=== PATIENT | male | born 1940 | race Caucasian/White ===

== ENCOUNTER 2020-06-10 07:52 | Outpatient (REF) | payer MEDICARE, OTHER, SELFPAY ==
[2020-06-10 11:04] LABS: MANUAL DIFF FLAG NO
[2020-06-10 11:07] LABS: Basophils Absolute Auto 0.1 X10*3/uL (0.0-0.2); Basophils Percent Auto 0.9 % (0-2); Eosinophils Absolute Auto 0.1 X10*3/uL (0.0-0.4); Eosinophils Percent Auto 1.1 % (0-4); Hemoglobin 14.6 g/dl (14.0-18.0); Imm Gran Abs Auto 0.12 X10*3/uL (0.00-0.03); Imm Gran Pct Auto 1.3 % (0.0-0.4); Lymphocytes Absolute Auto 2.3 X10*3/uL (1.2-4.9); Lymphocytes Percent Auto 25.2 % (20-40); Mean Corpuscular HGB Conc 33.2 g/dl (31.0-36.0); Mean Corpuscular Hemoglobin 31.1 pg (27.0-33.0); Mean Corpuscular Volume 93.8 fL (80-98); Mean Platelet Volume 10.6 fL (9.4-12.4); Monocytes Absolute Auto 0.7 X10*3/uL (0.1-1.2); Monocytes Percent Auto 7.5 % (2-11); Neutrophils Absolute Auto 5.8 X10*3/uL (2.0-8.3); Platelet Count 228 X10*3/uL (160-400); Red Blood Count 4.69 X10*6/uL (4.60-5.80); Red Cell Distribution Width 14.3 % (11.0-16.0); White Blood Count 9.1 X10*3/uL (4.8-10.8)
[2020-06-10 11:21] LABS: Estimated Average Glucose 163 mg/dL; Hemoglobin A1c % 7.3 %
[2020-06-10 12:08] LABS: Alanine Aminotransferase 12 U/L (0-40); Albumin Level 4.4 g/dL (3.5-5.0); Alkaline Phosphatase 62 U/L (39-117); Anion Gap 15 (12-20); Aspartate Amino Transferase 18 U/L (5-37); Bilirubin Total 0.5 mg/dL (0.0-1.0); Blood Urea Nitrogen 22 mg/dL (9-16); Carbon Dioxide 25 mmol/L (22-29); Chloride 103 mmol/L (96-108); Cholesterol 264 mg/dL; Estimated Glomerular Filt Rate > 60; Glucose Fasting 132 mg/dL (60-99); HDL Cholesterol 29 mg/dL; LDL Cholesterol Calculated 182 mg/dl; Potassium 4.6 mmol/l (3.3-5.1); Sodium 138 mmol/L (135-145); Total Protein 7.3 g/dL (6.5-8.0); Triglycerides 269 mg/dL
== END 2020-06-10 07:53 | disposition home or self-care (01) ==
LOC: HO.MANLR 07:52
PROVIDERS: PCP Physician Assistant; Visit Provider Physician Assistant
DX: I10 Essential (primary) hypertension (principal); E11.9 Type 2 diabetes mellitus without complications; E78.00 Pure hypercholesterolemia, unspecified
CPT/HCPCS: 36415; 80053; 80061; 83036; 85025

== ENCOUNTER 2021-03-08 08:25 | Outpatient (REF) | payer MEDICARE, OTHER, SELFPAY ==
[2021-03-08 11:36] LABS: Estimated Average Glucose 192 mg/dL; Hemoglobin A1c % 8.3 %
== END 2021-03-08 08:26 | disposition home or self-care (01) ==
LOC: HO.MANLDS 08:25
PROVIDERS: PCP Internal Medicine; Visit Provider Physician Assistant
DX: I10 Essential (primary) hypertension (principal); E11.9 Type 2 diabetes mellitus without complications; E78.00 Pure hypercholesterolemia, unspecified
CPT/HCPCS: 36415; 83036

== ENCOUNTER 2021-06-28 07:58 | Outpatient (REF) | payer MEDICARE, OTHER, SELFPAY ==
[2021-06-28 11:25] LABS: Estimated Average Glucose 169 mg/dL; Hemoglobin A1c % 7.5 %
== END 2021-06-28 07:59 | disposition home or self-care (01) ==
LOC: HO.MANLDS 07:58
PROVIDERS: PCP Internal Medicine; Visit Provider Internal Medicine
DX: E11.9 Type 2 diabetes mellitus without complications (principal)
CPT/HCPCS: 36415; 83036

== ENCOUNTER 2021-10-24 08:35 | Outpatient (REF) | payer MEDICARE, OTHER, SELFPAY ==
[2021-10-24 11:46] LABS: Estimated Average Glucose 160 mg/dL; Hemoglobin A1c % 7.2 %
== END 2021-10-24 08:36 | disposition home or self-care (01) ==
LOC: HO.MANLDS 08:35
PROVIDERS: PCP Internal Medicine; Visit Provider Internal Medicine
DX: E11.9 Type 2 diabetes mellitus without complications (principal)
CPT/HCPCS: 36415; 83036

== ENCOUNTER 2022-02-21 07:32 | Outpatient (REF) | payer MEDICARE, OTHER, SELFPAY ==
[2022-02-21 11:14] LABS: Estimated Average Glucose 154 mg/dL
== END 2022-02-21 07:33 | disposition home or self-care (01) ==
LOC: HO.MANLDS 07:32
PROVIDERS: Visit Provider Internal Medicine
DX: E11.9 Type 2 diabetes mellitus without complications (principal)
CPT/HCPCS: 36415; 83036

== ENCOUNTER 2022-06-26 08:27 | Outpatient (REF) | payer MEDICARE, OTHER, SELFPAY ==
[2022-06-26 10:57] LABS: MANUAL DIFF FLAG NO
[2022-06-26 11:12] LABS: Basophils Absolute Auto 0.1 X10*3/uL (0.0-0.2); Eosinophils Absolute Auto 0.1 X10*3/uL (0.0-0.4); Hematocrit 39.1 % (42.0-52.0); Hemoglobin 13.3 g/dl (14.0-18.0); Imm Gran Abs Auto 0.08 X10*3/uL (0.00-0.03); Lymphocytes Absolute Auto 1.9 X10*3/uL (1.2-4.9); Lymphocytes Percent Auto 23.7 % (20-40); Mean Corpuscular Hemoglobin 31.9 pg (27.0-33.0); Mean Corpuscular Volume 93.8 fL (80.0-98.0); Mean Platelet Volume 10.4 fL (9.4-12.4); Monocytes Absolute Auto 0.6 X10*3/uL (0.1-1.2); Monocytes Percent Auto 7.1 % (2-11); Neutrophils Absolute Auto 5.4 x10*3/uL (2.0-8.3); Neutrophils Percent Auto 66.2 % (45-73); Platelet Count 209 X10*3/uL (160-400); Red Blood Count 4.17 X10*6/uL (4.60-5.80); Red Cell Distribution Width 14.6 % (11.0-16.0); White Blood Count 8.2 X10*3/uL (4.8-10.8)
[2022-06-26 11:45] LABS: Alanine Aminotransferase 13 U/L (0-40); Albumin Level 4.3 g/dL (3.5-5.0); Alkaline Phosphatase 60 U/L (39-117); Anion Gap 15 (12-20); Aspartate Amino Transferase 20 U/L (5-37); Bilirubin Total 0.6 mg/dL (0.0-1.0); Blood Urea Nitrogen 21 mg/dL (9-16); Calcium 9.1 mg/dL (8.4-10.2); Carbon Dioxide 23 mmol/L (22-29); Chloride 103 mmol/L (96-108); Cholesterol 250 mg/dL; Estimated Glomerular Filt Rate > 60; Glucose Random 132 mg/dL (60-115); HDL Cholesterol 29 mg/dL; LDL Cholesterol Calculated 178 mg/dl; Potassium 4.5 mmol/L (3.3-5.1); Sodium 136 mmol/L (135-145); Triglycerides 215 mg/dL
[2022-06-26 11:46] LABS: Estimated Average Glucose 148 mg/dL; Hemoglobin A1c % 6.8 %
== END 2022-06-26 08:28 | disposition home or self-care (01) ==
LOC: HO.MANLDS 08:27
PROVIDERS: Visit Provider Internal Medicine
DX: E11.9 Type 2 diabetes mellitus without complications (principal)
CPT/HCPCS: 36415; 80053; 80061; 83036; 85025

== ENCOUNTER 2022-10-09 08:17 | Outpatient (REF) | payer MEDICARE, OTHER, SELFPAY ==
[2022-10-09 12:00] LABS: Estimated Average Glucose 177 mg/dL; Hemoglobin A1c % 7.8 %
== END 2022-10-09 08:18 | disposition home or self-care (01) ==
LOC: HO.MANLDS 08:17
PROVIDERS: Visit Provider Internal Medicine
DX: E11.9 Type 2 diabetes mellitus without complications (principal)
CPT/HCPCS: 36415; 83036

== ENCOUNTER 2023-02-18 07:53 | Outpatient (REF) | payer MEDICARE, OTHER, SELFPAY | END 2023-02-18 07:54 | disposition home or self-care (01) | LOC: HO.MANLDS 07:53 | PROVIDERS: Visit Provider Internal Medicine | DX: E11.9 Type 2 diabetes mellitus without complications (principal) | CPT/HCPCS: 36415; 83036 ==

== ENCOUNTER 2023-06-17 07:55 | Outpatient (REF) | payer MEDICARE, OTHER, SELFPAY ==
[2023-06-17 13:30] LABS: Estimated Average Glucose 143 mg/dL; Hemoglobin A1C 155.7251 umol/L; Hemoglobin A1c % 6.6 % (<6.0)
[2023-06-17 13:46] LABS: Alanine Aminotransferase 11 U/L (0-40); Albumin Level 4.1 g/dL (3.5-5.0); Alkaline Phosphatase 63 U/L (39-117); Anion Gap 15 (12-20); Aspartate Amino Transferase 22 U/L (5-37); Bilirubin Total 0.7 mg/dL (0.0-1.0); Blood Urea Nitrogen 15 mg/dL (9-16); Calcium 9.1 mg/dL (8.4-10.2); Carbon Dioxide 23 mmol/L (22-29); Chloride 104 mmol/L (96-108); Cholesterol 200 mg/dL (<200); Estimated Glomerular Filt Rate > 60; Glucose Random 132 mg/dL (60-115); HDL Cholesterol 27 mg/dL (>40); LDL Cholesterol Calculated 136 mg/dL (<100); Potassium 4.5 mmol/L (3.3-5.1); Sodium 137 mmol/L (135-145); Triglycerides 187 mg/dL (<150)
[2023-06-17 14:11] LABS: Creatinine Urine 67.11 mg/dL; Microalbum/Creatinine Ratio Ur 23.8 ug/mg cr (<30)
== END 2023-06-17 07:56 | disposition home or self-care (01) ==
LOC: HO.MANLDS 07:55
PROVIDERS: Visit Provider Internal Medicine
DX: E11.9 Type 2 diabetes mellitus without complications (principal)
CPT/HCPCS: 36415; 80053; 80061; 82043; 82570; 83036

== ENCOUNTER 2023-10-21 08:15 | Outpatient (REF) | payer MEDICARE, OTHER, SELFPAY ==
[2023-10-21 14:07] LABS: Estimated Average Glucose 148 mg/dL; Hemoglobin A1c % 6.8 % (<6.0)
== END 2023-10-21 08:16 | disposition home or self-care (01) ==
LOC: HO.MANLDS 08:15
PROVIDERS: Visit Provider Internal Medicine
DX: E11.9 Type 2 diabetes mellitus without complications (principal)
CPT/HCPCS: 36415; 83036

== ENCOUNTER 2024-02-24 08:00 | Outpatient (REF) | payer MEDICARE, OTHER, SELFPAY ==
[2024-02-24 14:18] LABS: Estimated Average Glucose 154 mg/dL
== END 2024-02-24 08:01 | disposition home or self-care (01) ==
LOC: HO.MANLDS 08:00
PROVIDERS: Visit Provider Internal Medicine
DX: E11.9 Type 2 diabetes mellitus without complications (principal)
CPT/HCPCS: 36415; 83036

== ENCOUNTER 2024-12-29 08:12 | Outpatient (REF) | payer MEDICARE, OTHER, SELFPAY ==
--- OUTSIDE RECORDS SUMMARY | 2024-12-29 08:17 | XMS_ITS | Encounter Summary ---
Author Name [facility] [facility] [place] [facility] [place] [facility] [place] Address [address] [place] [address] Care Team Providers Care Physical Therapy Technician Name Role Phone SHERICE SANTANA [facility] Insurance Providers: All historical and current Section Date Range: From patient's date of to the date document was created. This section includes the names of all active insurance providers for the patient. Insurance Provider Type of Coverage Plan Name Start of Policy Coverage End of Policy Coverage Group Number Member ID Insurance Provider's Telephone Number Policy Zheng's Name Patient's Relationship to Policy Zheng FARHATROBERT ELINA KONG [id number] Feb 16, 2017 [id number] ERIN STALEY PATIENT [facility] [employer] [place] [facility] [place] [facility] Jul 23, 2018 [id number] MEREERIN AHJI HN PATIENT [facility] Aug 19, 2015 [id number] ERIN STALEY HN PATIENT MEDICARE (WNR) MEDICARE (M) PART A Sep 19, 2007 PART A [id number] ERIN STALEY HN PATIENT MEDICARE (WNR) MEDICARE (M) PART B Sep 19, 2007 PART B [id number] MEREERIN HAJI HN PATIENT MEDICARE (WNR) MEDICARE (M) PART B Sep 19, 2007 PART B [id number] ERIN STALEY PATIENT MEDICARE (WNR) MEDICARE (M) PART A Sep 19, 2007 PART A [id number] ERIN STALEY PATIENT MEDICARE PART D (WNR) PRESCRIPT ION PART D Feb 16, 2017 PART D [id number] ERIN STALEY PATIENT MEDICARE PART D (WNR) PRESCRIPT ION PART D Feb 16, 2017 PART D [id number] [phone] ERIN STALEY PATIENT Selected Encounter This section includes the information on record at [place] for the Encounter. Date/Time Encounter Type Encounter Description Reason Provider Source Jul 22, 2024 10:00 AM OFFICE O/P EST HI 40 MIN PRIMARY CARE/MEDICINE ICD-10-CM I49.5 Sick sinus syndrome OZZY SANTANA AM [employer] Encounter Template Text not used by [place] Assessments - Encounter Diagnoses This section includes the primary and secondary diagnoses documented for the Encounter. Date/Time Primary/Secondary Diagnosis Diagnosis Name Provider Source Jul 22, 2024 10:31 AM PRIMARY Sick sinus syndrome SANTANA,WILL NOAH J [facility] Jul 22, 2024 10:31 AM SECONDARY Essential (primary) hypertension [facility] Jul 22, 2024 10:31 AM SECONDARY Hyperlipidemia, unspecified [facility] Jul 22, 2024 10:31 AM SECONDARY Sleep apnea, unspecified [facility] Jul 22, 2024 10:31 AM SECONDARY Type 2 diabetes mellitus without complications [facility] Lab Results: +/- 30 days of the encounter This section includes the Chemistry and Hematology Lab Results on record with [place] for the patient. Radiology Reports and Pathology Reports are provided separately, in subsequent sections. Lab Results This section contains the Chemistry/Hematology Results that were resulted 30 days before or 30 daysafter the date of the Encounter. Date/Time Source Result Type Result - Unit Interpretation Reference Range Specimen Type Comment Jul 14, 2024 07:47 AM [facility] BASIC METABOLIC PANEL (non-fasting) SERUM Spe cimen Type: SERUM No comment entered. Ordering Provider: VANE SANTANA Report Released Date/Time: Jul 08, 2024 03:20 PM Reporting Lab: [facility] [address] [facility] [facility] [address] Performing Lab: [address] [address] UREA NITROGEN 19 mg/dL 7-25 GLUCOSE 132 mg/dL H 65-100 SODIUM 136 mmol/L 135-145 POTASSIUM 4.7 mmol/L 3.5-5.0 CHLORIDE 105 mmol/L 100-110 CO2 23 meq/L 20-30 CREATININE, Serum 1.03 mg/dL 0.50-1.40 eGFR(CKD-EPI 2020) 73 mL/min >60 Jul 14, 2024 07:47 AM [facility] CBC BLOOD Specimen Type: BLOOD No comment entered. Ordering Provider: SHERICE SANTANA Report Released Date/Time: Jul 08, 2024 03:20 PM Reporting Lab: [address] [address] Performing Lab: [address] [address] WBC 8.79 10*3/uL 4.50-11.00 RBC 4.61 10*6/uL 4.23-5.66 HGB 14.6 g/dL 12.8-17 HCT 42.3 39.2-50.4 MCV 91.8 fL 82-99 MCHC 34.5 g/dL 30.8-35.1 PLT 206 10*3/uL 140-360 RDW-CV 14.8 12.0-16.0 MCH 31.7 pg 26.2-32.6 Jul 14, 2024 07:47 AM [facility] LIPID PANEL, NON FASTING SERUM Specimen Type: SERUM No comment entered. Ordering Provider: SHERICE SANTANA Report Released Date/Time: Jul 08, 2024 03:20 PM Reporting Lab: [address] [address] Performing Lab: [facility] [address] [facility] [address] CHOLESTEROL 230 mg/dL H TRIGLYCERIDE 135 mg/dL 0-150 LDL calculated 175 mg/dL H 0-129 CHOL/HDL 8.2 HDL CHOLESTEROL 28 mg/dL L 40-60 Jul 14, 2024 07:47 AM [facility] HEMOGLOBIN A1C PANEL BLOOD Specimen Type: BLO OD Comment: Values obtained from A1C measurements can vary. For atypical A1C assays, a reported value of 7.0 could actually be between 6.72 and 7.28 if measured by a reference method. A reported value of 9.0 could actually be between 8.73 and 9.27. Ref: http://www.ngsp.org/CAPdata.asp Ordering Provider: SHERICE SANTANA Report Released Date/Time: Jul 08, 2024 03:20 PM Reporting Lab: [address] [address] Performing Lab: [address] [address] HEMOGLOBIN A1C 6.8 H 4.0-5.6 Jul 14, 2024 07:47 AM [facility] LIVER FUNCTION SERUM Specimen Type: SERUM No comment entered. Ordering Provider: SHERICE SANTANA Report Released Date/Time: Jul 08, 2024 03:20 PM Reporting Lab: [address] [address] Performing Lab: [address] [address] PROTEIN,TOTAL 7.1 g/dL 6.0-8.3 ALBUMIN 4.1 g/dL 3.5-5.0 ALKALINE PHOSPHATASE 69 U/L 40-150 AST 20 U/L 5-34 ALT 14 U/L BILIRUBIN, TOTAL 0.9 mg/dL 0.2-1.2 Jul 14, 2024 07:47 AM [facility] PT & INR (PROTIME) PLASMA Specimen Type: PLASM A No comment entered. Ordering Provider: SANTANA,SHERICE J Report Released Date/Time: Jul 08, 2024 03:20 PM Reporting Lab: [facility] [address] [facility] [address] Performing Lab: [address] [address] INR 2.0 PROTIME 21.2 s H 10.0-13.1 Jul 14, 2024 06:45 AM [facility] MICROALBUMIN CREATININE RATIO PANEL URINE Spe cimen Type: URINE No comment entered. Ordering Provider: SHERICE SANTANA Report Released Date/Time: Jul 08, 2024 03:20 PM Reporting Lab: [facility] [address] [address] Performing Lab: [facility] [address] [address] MICROALBUMIN/CREATININE RATIO 17.6 mg/g 0-29.9 MICROALBUMIN,QUANTITATIVE 0.5 mg/dL RR U NAVAIL CREATININE URINE 28.48 mg/dL Vital Signs: All taken on the encounter date This section contains inpatient and outpatient Vital Signs collected on the date of the Encounter. Date/Time Temperature Pulse Blood Pressure Respiratory Rate SP02 Pain Height Weight Body Mass Index Source Jul 22, 2024 10:28 AM 138[facility] [place] [facility] Jul 22, 2024 09:57 AM 98.3 88 157/81 20 100 0 71 263 37 [facility] Social History: Smoking Status (Most current) and Tobacco Use (All prior to encounter date) This section includes the most current, and the historical, smoking and tobacco- related health factors from the [place] facility where the Encounter took place. Current Smoking Status This section includes the most current smoking, or tobacco-related health factor, from the [place] facility where the Encounter took place. Date/Time Current Smoking Status Comment Mariola choudhary Jul 22, 2023 09:30 AM VA-TOBACCO NEVER USED [facility] Tobacco Use History This section includes a history of the smoking, or tobacco-related health factors, that were collected on or before the date of the Encounter. The data comes from the [place] facility where the Encounter took place. Date/Time Smoking Status/Tobacco Use Comment F acility Jul 19, 2022 09:00 AM VA-TOBACCO NEVER USED [facility] [place] [facility] Jul 21, 2021 09:00 AM VA-TOBACCO NEVER USED [facility] [place] [facility] Jul 12, 2020 10:12 AM VA-TOBACCO NEVER USED [facility] [place] [facility] Jul 19, 2019 12:47 PM VA-TOBACCO NEVER USED [facility] [place] [facility] Feb 14, 2018 10:48 AM VA-TOBACCO NEVER USED [facility] [place] [facility] Jul 24, 2017 08:25 AM LIFETIME NON-TOBACCO USER [facility] [place] [facility] Jul 25, 2016 11:19 AM LIFETIME NON-TOBACCO USER [facility] [place] [facility] Encounter Notes: All associated encounter notes This section contains the clinical notes associated to the Encounter. Date/Time Encounter Note(s) Provider Source Jul 22, 2024 10:20 AM PRIMARY CARE NURSE PRACTITIONER OUTPATIENT NOTE: LOCAL TITLE: NURSE PRACTITIONER OUTPATIENT NOTE STANDARD TITLE: PRIMARY CARE NURSE PRACTITIONER OUTPATIENT NOTE DATE OF NOTE: JUL 22, 2024@10:20 ENTRY DATE: JUL 22, 2024@10:20:41 AUTHOR: SHERICE SANTANA COSIGNER: URGENCY: STATUS: COMPLETED Chief complaint: Patient is a 83 year old [place]. HPI: Pleasant male [place] here to follow up. He comes annaully, follows with Dr. Juarez. Allergies: SIMVASTATIN, KEFLEX, CLARITIN The following VA and Non-VA meds were reconciled with patient. The patient was educated on the use of the medications including indication and side effects. Active and Recently Outpatient Medications (excluding Supplies): Active Non-VA Medications Status 1) Non-VA ASPIRIN 81MG CHEW TAB 81MG BY MOUTH DAILY ACTIVE 2) Non-VA DORZOLAMIDE HCL 2% OPH SOLN 1 DROP TWICE ACTIVE DAILY 3) Non-VA FISH OIL 1000MG (500MG DHA/EPA) CAP 1000MG BY ACTIVE MOUTH DAILY 4) Non-VA LATANOPROST 0.005% OPH SOLN 1 DROP INTO EACH ACTIVE EYE DAILY 5) Non-VA LISINOPRIL 20MG TAB 20MG BY MOUTH ONCE DAILY ACTIVE 6) Non-VA WARFARIN (NON-VA) TAB 4 MG BY MOUTH DAILY ACTIVE Review of Systems: Constitutional: (-)for Fevers, chills, weakness, nights sweats On examination: 98.3 F [36.8 C] (07/22/2024 09:57)157/81 (07/22/2024 09:57)88 (07/22/2024 09:57)20 (07/22/2024 09:57)0 (07/22/2024 09:57)BMI: 36.8263 lb [119.29 kg] (07/22/2024 09:57) is alert and oriented X3 Neck: supple without masses, trachea midline, ln not palpable, no thyromegaly Cardiovasc: 2plus carotids without bruits, no JVD Heart Reguler rate and rhythm NL S1S2 no S3 or murmur Respiration: Normal respiratory effort, lungs clear ABD: Benign normal active bowel sounds no HSM no rebound or referred pain EXT: no clubbing, edema, or cyanosis All diagnostics from past month were reviewed with patient. Assessment/plan: Active problems - Computerized Problem List is the source for the followin. Sick sinus syndrome - maintains non va cardiology, pacemaker in place. He is followed in the community, Dr. Ordoñez. 2. Diabetic neuropathy - we discussed importance of foot care, daily inspections, avoiding bear feet... 3. Hyperlipidemia - some improvement, did not tolerate statins, discussed food strategies 4. Diabetes mellitus type 2 without retinopathy - controlled with diet 5. History of mechanical heart valve replacement - [place] model [id number] 02/08/2004, MRI compatible. 7. Sleep apnea - doing well with cpap 8. Benign essential hypertension - repeat 138/76, continue lisinopril. 9. Glaucoma - follows with Dr. Harrell, reviewed and discussed eye medication. Health Care Maintenance: flu+ CVS 05/29/2024 Review of medial record = 5mins Time spent with Patient including shared decision making = 30 mins Post visit documentation = 5mins Total time = 40 mins Follow up visit in 12 mos. Influenza Immunization: The patient has received the seasonal influenza vaccine for the current season at another location. Documented: INFLUENZA, UNSPECIFIED FORMULATION Historical Date Administered: May 29, 2024 Outside Location: Outside Healthcare Provider Information Source: SOURCE UNSPECIFIED HTN Assess for Elevated BP>=140/90: Repeat blood pressure: 138/76 The patient's blood pressure is usually adequately controlled. No medication changes are indicated at this time. PAVE Foot Check: A complete foot check was completed at this encounter. VISUAL INSPECTION: Includes inspection for skin breaks, deformity, erythema, trauma, pallor on elevation, dependent rubor, nail deformities, extensive callus and pitting edema. Visual exam results: Normal PEDAL PULSES: Includes palpation of dorsalis and posterior tibial pulses and signs/symptoms of vascular compromise like pain, pallor, parasthesia or paralysis. Present (even if diminished) SENSORY CHECK: Includes 10 gram Monofilament ([place]-Thuy) test of sensation. Intact (Greater than or equal to 80% of sites checked) Abnormal (Less than 80% of sites checked): Intact LOW-RISK: LOW RISK INFORMATION PROVIDED: 1. Advised patient not to walk barefoot. 2. Explained the importance of daily foot checks for changes. 3. Stressed the importance of daily foot hygiene, including bathing and complete drying. Sexual Orientation: The patient thinks of their sexual orientation as: Straight or Heterosexual Medication Reconciliation: Outpatient: Has the patient been taking medications as documented in the EMLR? YES: The patient has been taking medications as documented in the EMLR. Essential Medication List for Review used to complete this medication reconciliation. INCLUDED IN THIS LIST: Alphabetical list of active outpatient prescriptions dispensed from this [facility] (local) and dispensed from another [place] or [facility] facility (remote) as well as inpatient orders (local, pending and active), local clinic medications, locally documented non-VA medications, and local prescriptions that have or been discontinued in the past 90 days. - All changes in medications, including all non-VA/Herbal/OTC medications were entered into CPRS. - If there were any medications the patient should no longer take, they were discontinued. - The patient/caregiver was instructed to update this list, discard old lists, and take this list to the next appointment, whether with a VA or non-VA provider. /lj/ Sherice Santana DNP, OIL WELL DRILLER-BC, CNL Primary Care Nurse Practitioner Signed: 07/22/2024 10:30 SHERICE SANTANA [place] [facility] [place] [facility] Jul 22, 2024 10:13 AM PRIMARY CARE NURSE PRACTITIONER OUTPATIENT NOTE: LOCAL TITLE: NURSE PRACTITIONER OUTPATIENT NOTE STANDARD TITLE: PRIMARY CARE NURSE PRACTITIONER OUTPATIENT NOTE DATE OF NOTE: JUL 22, 2024@10:13 ENTRY DATE: JUL 22, 2024@10:13:27 AUTHOR: SHERICE SANTANA EXP COSIGNER: URGENCY: STATUS: COMPLETED LAB CHEMISTRY & HEMATOLOGY Collection DT Specimen Test Name Result Units Ref Range 07/14/2024 07:47 PLASMA PROTIME 21.2 H sec 10.0 - 13.1 INR 2.0 07/14/2024 07:47 SERUM CREATININE, Serum 1.03 mg/dL 0.50 - 1.40 eGFR(CKD-EPI 2020 73 mL/min Ref: >=60 SODIUM 136 mmol/L 135 - 145 POTASSIUM 4.7 mmol/L 3.5 - 5.0 CHLORIDE 105 mmol/L 100 - 110 CO2 23 mEq/L 20 - 30 UREA NITROGEN 19 mg/dL 7 - 25 GLUCOSE 132 H mg/dL 65 - 100 PROTEIN,TOTAL 7.1 g/dL 6.0 - 8.3 ALBUMIN 4.1 g/dL 3.5 - 5.0 ALK DANIELLA 69 U/L 40 - 150 AST 20 U/L 5 - 34 BILIRUBIN, TOTAL 0.9 mg/dL 0.2 - 1.2 CHOLESTEROL 230 H mg/dL <7 - 199 TRIGLYCERIDE 135 mg/dL 0 - 150 LDL calculated 175 H mg/dL 0 - 129 CHOL/HDL 8.2 ALT 14 U/L <6 - 55 HDL CHOLESTEROL 28 L mg/dL 40 - 60 07/14/2024 07:47 BLOOD !! HEMOGLOBIN A1C 6.8 H % 4.0 - 5.6 07/14/2024 07:47 BLOOD WBC 8.79 K/cmm 4.50 - 11.00 RBC 4.61 M/cmm 4.23 - 5.66 HGB 14.6 g/dL 12.8 - 17 HCT 42.3 % 39.2 - 50.4 MCV 91.8 fl 82 - 99 MCH 31.7 pg 26.2 - 32.6 MCHC 34.5 g/dL 30.8 - 35.1 RDW-CV 14.8 % 12.0 - 16.0 PLT 206 K/cmm 140 - 360 07/14/2024 06:45 URINE mALB/Cr 17.6 mg/G 0 - 29.9 MicroAl 0.5 mg/dL Ref: RR UNAVAIL CREATININE URINE 28.48 mg/dL /lj/ Sherice Santana DNP, OIL WELL DRILLER-BC, CNL Primary Care Nurse Practitioner Signed: 07/22/2024 10:20 SHERICE SANTANA [facility] [place] [facility] Jul 22, 2024 10:02 AM PREVENTIVE MEDICINE NURSING NOTE: LOCAL TITLE: CLINICAL REMINDERS/NURSING STANDARD TITLE: PREVENTIVE MEDICINE NURSING NOTE DATE OF NOTE: JUL 22, 2024@10:02 ENTRY DATE: JUL 22, 2024@10:02:54 AUTHOR: DALE HINSON COSIGNER: URGENCY: STATUS: COMPLETED Advance Directive Screen MH AD: Patient does not have an Advance Directive completed and is requesting more information. A consult was sent to Social Work Services at this visit so that an appointment can be made with the patient to review the advance directive. The patient received education about Advance Directives and written notification of his/her rights. Suicide Screen: C-SSRS Screening [place]-Suicide Severity Rating Scale (C-SSRS Screener) 1. Over the past month, have you wished you were or wished you could go to sleep and not wake up? No 2. Over the past month, have you had any actual thoughts of killing yourself? No 3. Over the past month, have you been thinking about how you might do this? Response not required due to responses to other questions. 4. Over the past month, have you had these thoughts and had some intention of acting on them? Response not required due to responses to other questions. 5. Over the past month, have you started to work out or worked out the details of how to kill yourself? Response not required due to responses to other questions. 6. If yes, at any time in the past month did you intend to carry out this plan? Response not required due to responses to other questions. 7. In your lifetime, have you ever done anything, started to do anything, or prepared to do anything to end your life (for example, collected pills, obtained a gun, gave away valuables, went to the roof but didn't jump)? No 8. If YES, was this within the past 3 months? Response not required due to responses to other questions. Depression Screening: Perform PHQ-2 A PHQ-2 screen was performed. The score was 0 which is a negative screen for depression. Over the past two weeks, how often have you been bothered by the following problems? 1. Little interest or pleasure in doing things Not at all 2. Feeling down, depressed, or hopeless Not at all Homelessness/Food Insecurity Screen: In the past 2 months, have you been living in stable housing that you own, rent, or stay in as part of a household? Yes - Living in stable housing. Are you worried or concerned that in the next 2 months you may NOT have stable housing that you own, rent, or stay in as part of a household? No - Not worried about housing near future The [place] reports the following: Within the past 12 months, you worried whether your food would run out before you got money to buy more. Never true Within the past 12 months, the food you bought just didn't last and you didn't have money to get more. Never true Depression Screening: Perform PHQ-2 A PHQ-2 screen was performed. The score was 0 which is a negative screen for depression. Over the past two weeks, how often have you been bothered by the following problems? 1. Little interest or pleasure in doing things Not at all 2. Feeling down, depressed, or hopeless Not at all Falls & Incontinence Screen: Falls Screen: 4. No falls within the past year. Incontinence Screen No incontinence. Alcohol Use Screen (AUDIT-C): Alcohol Screen: SCREEN FOR ALCOHOL (AUDIT-C) An alcohol screening test (AUDIT-C) was negative (score=0). 1. How often did you have a drink containing alcohol in the past year? Consider a drink to be a 12 ounce can or bottle of regular beer, 8 ounces of malt liquor, a 5 ounce glass of table wine, or a 1.5 ounce shot of liquor (like scotch, gin, or vodka). Never 2. How many drinks containing alcohol did you have on a typical day when you were drinking in the past year? Response not required due to responses to other questions. 3. How often did you have six or more drinks on one occasion in the past year? Response not required due to responses to other questions. RHS Screen: RHS Screen Session Format: Face to Face Environmental Check Upon inquiry, the individual reports that the environment is safe to proceed. Informed Consent to Screen and Document The individual consents to proceed with screening. The individual consents to documentation of responses. PRIMARY SCREEN: In the past 12 months, how often did a current or former intimate partner (e.g., boyfriend, girlfriend, , , sexual partner): 1. Scream or curse at you Never 2. Insult or talk down to you Never 3. Threaten you with harm Never 4. Physically hurt you Never 5. Force or pressure you to have sexual contact against your will, or when you were unable to say no Never ?? The HITS tool (items 1-4 above) is [place] copyright protected by Sunny Terrell MD, and the user has full rights to use it throughout the [place] system. PRIMARY SCREEN RESULT: The Primary Screen is NEGATIVE. The individual answered never to all forms of IPV above (i.e., answered never to all 5 items) The individual accepts education and/or resources: No EDUCATION: Other: not interested at this time /lj/ Dale Hinson Health Mining Analyst FRANCHISE FIELD CONSULTANT,PRIMARY CARE Signed: 07/22/2024 10:05 DALE HINSON [place] [facility]
--- OUTSIDE RECORDS SUMMARY | 2024-12-29 08:17 | XMS_ITS | Continuity of Care Document ---
Author Name [facility] Organization [facility] Care Team Providers Care Therapeutic Recreation Director Name Role Phone [facility] Unavailable Unavailable Problems Combined list of problems from Department of Defense and Veterans Affairs facilities. It does not include entries that were removed or entered in error. 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 [facility] [place] [facility] Hyperlipidemia (SCT [id number]) Active Condition [facility] [place] [facility] Sick sinus syndrome Active Condition Jul 22, 2024 Entered By: VANE LI Comment: 2020 pacemaker [facility] [place] [place] [facility] Sleep apnea Active Condition Jul 25, 2016 Entered By: ADAN GUNN Comment: [facility]ap [facility] [place] [facility] Tinnitus Active [facility] [place] [facility] Diagnosis: ICD-10-CM I49.5 Sick sinus syndrome Active Diagnosis [facility] [place] [facility] Medications Combined list of outpatient medications from Department of Defense and Veterans Affairs facilities.Medications provided include 1) outpatient medications from the last 15 months, and 2) patient-reported medications. Medication Details Route Status Patient Instructions Prescription Expires Prescription Number Last Dispense Date Ordering Provider Order Date Order Qty Source ASPIRIN 81MG TAB,CHEWABL E CHEW ONE TABLET BY MOUTH DAILY ORAL ACTIVE JESUS GUNN TH Ron 2016 [facility] DORZOLAMIDE HCL 2% SOLN,OPH INSTILL 1 DROP left eye TWICE DAILY ACTIVE ,[facility] FISH OIL 1000MG (500MG DHA/EPA) CAP,ORAL TAKE 1 CAPSULE BY MOUTH DAILY ORAL ACTIVE [facility] LATANOPROST 0.005% SOLN,OPH INSTILL 1 DROP INTO EACH EYE DAILY OPHTHA LMIC ACTIVE , [facility] LISINOPRIL 20MG TAB TAKE ONE TABLET BY MOUTH ONCE DAILY ORAL ACTIVE [facility] LI [facility] WARFARIN (NON-VA) TAB TAKE 4 MG BY MOUTH DAILY ORAL ACTIVE [facility] Allergies, Adverse Reactions, Alerts Combined list of allergies from Department of Defense and Veterans Affairs facilities. It does not include entries that were removed or entered in error. Substance Category Reaction Severity Reaction type Status Date Reported Comments Source CLARITIN Propensity to adverse reactions to drug (finding) active [facility] KEFLEX Propensity to adverse reactions to drug (finding) active 6 [facility] SIMVASTATIN Propensity to adverse reactions to drug (finding) active 6 [facility] Immunizations Combined list of available immunizations from the Department of Defense and Veterans Affairs facilities. Immunization Series Date Given Administered By Site Reaction Lot Number CVX Code Drug Rubber Attacher Status Comments Source INFLUENZA, UNSPECIFIED FORMULATION 2023 88 complet ed HISTORICA L INFORMATI ON - SOURCE UNSPECIFI ED, [facility] INFLUENZA, UNSPECIFIED FORMULATION 2022 88 complet ed HISTORICA L INFORMATI ON - SOURCE UNSPECIFI ED, [facility] INFLUENZA, UNSPECIFIED FORMULATION 2021 88 complet ed [facility] COVID-19 (MODERNA), MRNA, LNP-S, PF, 100 MCG OR 50 MCG DOSE 3 2020 207 complet ed MOD; [id number]; 2 [facility] INFLUENZA, UNSPECIFIED FORMULATION 2020 88 complet ed [facility] COVID-19 (MODERNA), MRNA, LNP-S, PF, 100 MCG/0.5 ML DOSE 2 2020 207 complet ed MOD; [id number]; 1 [facility] COVID-19 (MODERNA), MRNA, LNP-S, PF, 100 MCG/0.5 ML DOSE 1 2020 207 complet ed MOD; [id number]; 1 [facility] [place] INFLUENZA, UNSPECIFIED FORMULATION 2019 88 complet ed [facility] [place] INFLUENZA, INJECTABLE, QUADRIVALENT, PRESERVATIVE FREE 2018 150 complet ed Site: Left Deltoid [facility] PNEUMOCOCCAL POLYSACCHARID E PPV23 2018 33 complet ed [facility] INFLUENZA, TRIVALENT, ADJUVANTED 2017 168 complet ed Site: Right Deltoid [facility] [place] PNEUMOCOCCAL CONJUGATE PCV 13 2017 133 complet ed [facility] INFLUENZA, SEASONAL, INJECTABLE 2016 141 complet ed Site: Left Deltoid [facility] TDAP 2016 115 complet ed Site: Right Deltoid [facility] FLU,3 YRS (HISTORICAL) [address] Juarez office [facility] FLU,3 YRS (HISTORICAL) 2015 88 complet ed [facility] [place] FLU,3 YRS (HISTORICAL) [address] [facility]arez [facility] FLU,3 YRS (HISTORICAL) [address] [place] [facility] [place] [facility] FLU,3 YRS (HISTORICAL) [address] [place] [facility] [place] [facility] FLU,3 YRS (HISTORICAL) [address] [place] [facility] [place] [facility] Results Combined list of recent chemistry, hematology and other laboratory results from Department of Defense and Veterans Affairs, ranging from 15 months to all on record, depending upon the facility. Order Name Results Value Reference Range Date Interpretation Specimen Comments Source CBC LEUKOCYTES [#/VOLUME] IN BLOOD BY AUTOMATED COUNT 8.79 10*3/u L 4.50 - 11.00 07/14 Specimen Type: BLOOD No comment entered. Ordering Provider: POLINA LI Report Released Date/Time: Jul 08, 2024 03:20 PM Reporting Lab: [facility] [place] [place] [address] [address] Performing Lab: [place] [facility] [place] [facility] [address] [facility] [address] [facility] [place] [facility] CBC ERYTHROCYTE S [#/VOLUME] IN BLOOD BY AUTOMATED COUNT 4.61 10*6/u L 4.23 - 5.66 07/14 Specimen Type: BLOOD No comment entered. Ordering Provider: POLINA LI Report Released Date/Time: Jul 08, 2024 03:20 PM Reporting Lab: [facility] [place] [place] [address] [address] Performing Lab: [place] [facility] [place] [facility] [address] [facility] [address] [place] [facility] [place] [facility] CBC HEMOGLOBIN [MASS/VOLUM E] IN BLOOD 14.6 g/dL 12.8 - 17 07/14 Specimen Type: BLOOD No comment entered. Ordering Provider: POLINA LI Report Released Date/Time: Jul 08, 2024 03:20 PM Reporting Lab: [facility] [place] [address] [address] Performing Lab: [facility] [place] [facility] [address] [facility] [address] [facility] [facility] CBC HEMATOCRIT [VOLUME FRACTION] OF BLOOD BY AUTOMATED COUNT 42.3 39.2 - 50.4 07/14 Specimen Type: BLOOD No comment entered. Ordering Provider: POLINA LI Report Released Date/Time: Jul 08, 2024 03:20 PM Reporting Lab: [facility] [place] [place] [facility] [address] [facility] [address] Performing Lab: [facility] [place] [facility] [address] [facility] [address] [place] [facility] [place] [facility] CBC MCV [ENTITIC VOLUME] BY AUTOMATED COUNT 91.8 fL 82 - 99 07/14 Specimen Type: BLOOD No comment entered. Ordering Provider: POLINA LI Report Released Date/Time: Jul 08, 2024 03:20 PM Reporting Lab: [facility] [place] [address] [address] Performing Lab: [facility] [place] [place] [address] [address] [facility] [place] [facility] CBC MCHC [MASS/VOLUM E] BY AUTOMATED COUNT 34.5 g/dL 30.8 - 35.1 07/14 Specimen Type: BLOOD No comment entered. Ordering Provider: POLINA LI Report Released Date/Time: Jul 08, 2024 03:20 PM Reporting Lab: [facility] [place] [address] [address] Performing Lab: [facility] [place] [place] [address] [address] [facility] [place] [facility] CBC PLATELETS [#/VOLUME] IN BLOOD BY AUTOMATED COUNT 206 10*3/u L 140 - 360 07/14 Specimen Type: BLOOD No comment entered. Ordering Provider: POLINA LI Report Released Date/Time: Jul 08, 2024 03:20 PM Reporting Lab: [facility] [place] [address] [address] Performing Lab: [facility] [place] [facility] [address] [facility] [address] [facility] [place] [facility] CBC ERYTHROCYTE DISTRIBUTIO N WIDTH [RATIO] BY AUTOMATED COUNT 14.8 12.0 - 16.0 07/14 Specimen Type: BLOOD No comment entered. Ordering Provider: POLINA LI Report Released Date/Time: Jul 08, 2024 03:20 PM Reporting Lab: [facility] [place] [facility] [address] [facility] [address] Performing Lab: [place] [facility] [place] [facility] [address] [facility] [address] [facility] [place] [facility] CBC MCH [ENTITIC MASS] BY AUTOMATED COUNT 31.7 pg 26.2 - 32.6 07/14 Specimen Type: BLOOD No comment entered. Ordering Provider: POLINA LI Report Released Date/Time: Jul 08, 2024 03:20 PM Reporting Lab: [facility] [place] [facility] [address] [facility] [address] Performing Lab: [facility] [place] [facility] [address] [facility] [address] [facility] [place] [facility] BASIC METABOLIC PANEL (non-fast ing) UREA NITROGEN [MASS/VOLUM E] IN SERUM OR PLASMA 19 mg/dL 7 - 25 07/14 Specimen Type: SERUM No comment entered. Ordering Provider: POLINA LI Report Released Date/Time: Jul 08, 2024 03:20 PM Reporting Lab: [facility] [place] [facility] [address] [facility] [address] Performing Lab: [place] [facility] [place] [address] [address] [facility] [place] [facility] BASIC METABOLIC PANEL (non-fast ing) GLUCOSE [MASS/VOLUM E] IN SERUM OR PLASMA 132 mg/dL 65 - 100 07/14 H Specimen Type: SERUM No comment entered. Ordering Provider: POLINA LI Report Released Date/Time: Jul 08, 2024 03:20 PM Reporting Lab: [facility] [place] [facility] [address] [facility] [address] Performing Lab: [place] [facility] [place] [facility] [address] [facility] [address] [place] [facility] [place] [facility] BASIC METABOLIC PANEL (non-fast ing) SODIUM [MOLES/VOLU ME] IN SERUM OR PLASMA 136 mmol/L 135 - 145 07/14 Specimen Type: SERUM No comment entered. Ordering Provider: POLINA LI Report Released Date/Time: Jul 08, 2024 03:20 PM Reporting Lab: [facility] [place] [facility] [address] [facility] [address] Performing Lab: [place] [facility] [place] [facility] [address] [facility] [address] [facility] [place] [facility] BASIC METABOLIC PANEL (non-fast ing) POTASSIUM [MOLES/VOLU ME] IN SERUM OR PLASMA 4.7 mmol/L 3.5 - 5.0 07/14 Specimen Type: SERUM No comment entered. Ordering Provider: POLINA LI Report Released Date/Time: Jul 08, 2024 03:20 PM Reporting Lab: [facility] [place] [facility] [address] [facility] [address] Performing Lab: [place] [facility] [place] [facility] [address] [facility] [address] [facility] [place] [facility] BASIC METABOLIC PANEL (non-fast ing) CHLORIDE [MOLES/VOLU ME] IN SERUM OR PLASMA 105 mmol/L 100 - 110 07/14 Specimen Type: SERUM No comment entered. Ordering Provider: POLINA LI Report Released Date/Time: Jul 08, 2024 03:20 PM Reporting Lab: [facility] [place] [facility] [address] [facility] [address] Performing Lab: [place] [facility] [place] [facility] [address] [facility] [address] [facility] [place] [place] [facility] BASIC METABOLIC PANEL (non-fast ing) CARBON DIOXIDE, TOTAL [MOLES/VOLU ME] IN SERUM OR PLASMA 23 meq/L 20 - 30 07/14 Specimen Type: SERUM No comment entered. Ordering Provider: POLINA LI Report Released Date/Time: Jul 08, 2024 03:20 PM Reporting Lab: [facility] [address] [address] Performing Lab: [facility] [address] [facility] BASIC METABOLIC PANEL (non-fast ing) CREATININE [MASS/VOLUM E] IN SERUM OR PLASMA 1.03 mg/dL 0.50 - 1.40 07/14 Specimen Type: SERUM No comment entered. Ordering Provider: POLINA LI Report Released Date/Time: Jul 08, 2024 03:20 PM Reporting Lab: [facility] [address] [address] Performing Lab: [facility] [address] [facility] BASIC METABOLIC PANEL (non-fast ing) GLOMERULAR FILTRATION RATE/1.73 SQ M.PREDICTED [VOLUME RATE/AREA] IN SERUM, PLASMA OR BLOOD BY CREATININE- BASED FORMULA (CKD-EPI 2020) 73 mL/min 60 07/14 Specimen Type: SERUM No comment entered. Ordering Provider: POLINA LI Report Released Date/Time: Jul 08, 2024 03:20 PM Reporting Lab: [facility] [address] Performing Lab: [facility] [address] [facility] LIPID PANEL, NON FASTING CHOLESTEROL [MASS/VOLUM E] IN SERUM OR PLASMA 230 mg/dL 07/14 H Specimen Type: SERUM No comment entered. Ordering Provider: POLINA LI Report Released Date/Time: Jul 08, 2024 03:20 PM Reporting Lab: [facility] [address] Performing Lab: [facility]N [facility] [address] [facility] [address] [facility] LIPID PANEL, NON FASTING TRIGLYCERID E [MASS/VOLUM E] IN SERUM OR PLASMA 135 mg/dL 0 - 150 07/14 Specimen Type: SERUM No comment entered. Ordering Provider: POLINA LI Report Released Date/Time: Jul 08, 2024 03:20 PM Reporting Lab: [facility] [place] [place] [facility] [address] [facility] [address] Performing Lab: [facility] SERVICESRENCOMPASS [facility] NOR[facility] ALABAMATRN [facility]USE[facility] [address] [facility] [address] [facility] LIPID PANEL, NON FASTING CHOLESTEROL IN LDL [MASS/VOLUM E] IN SERUM OR PLASMA BY CALCULATION 175 mg/dL 0 - 129 07/14 H Specimen Type: SERUM No comment entered. Ordering Provider: POLINA LI Report Released Date/Time: Jul 08, 2024 03:20 PM Reporting Lab: [facility] SERVICESRENCOM[facility] ALABAMATRN [facility]USELE[facility] [address] [facility] [address] Performing Lab: [facility] TRN [facility] [address] [facility] [address] [facility]RVETER[facility] LIPID PANEL, NON FASTING CHOLESTEROL .TOTAL/CHOL ESTEROL IN HDL [MASS RATIO] IN SERUM OR PLASMA 8.2 07/14 Specimen Type: SERUM No comment entered. Ordering Provider: POLINA LI Report Released Date/Time: Jul 08, 2024 03:20 PM Reporting Lab: [facility]N [facility] [address] [facility] [address] Performing Lab: [facility]RL TRN [facility] [address] [facility] [address] [facility]RVETER[facility] LIPID PANEL, NON FASTING CHOLESTEROL IN HDL [MASS/VOLUM E] IN SERUM OR PLASMA 28 mg/dL 40 - 60 07/14 L Specimen Type: SERUM No comment entered. Ordering Provider: POLINA LI Report Released Date/Time: Jul 08, 2024 03:20 PM Reporting Lab: [facility] [place] [facility] [address] [facility] [address] Performing Lab: [facility] [place] [facility] [address] [facility] [address] [place] [facility] [place] [facility] LIVER FUNCTION PROTEIN [MASS/VOLUM E] IN SERUM OR PLASMA 7.1 g/dL 6.0 - 8.3 07/14 Specimen Type: SERUM No comment entered. Ordering Provider: POLINA LI Report Released Date/Time: Jul 08, 2024 03:20 PM Reporting Lab: [facility] [place] [facility] [address] [facility] [address] Performing Lab: [facility] [place] [facility] [address] [facility] [address] [place] [facility] [facility] LIVER FUNCTION ALBUMIN [MASS/VOLUM E] IN SERUM OR PLASMA 4.1 g/dL 3.5 - 5.0 07/14 Specimen Type: SERUM No comment entered. Ordering Provider: POLINA LI Report Released Date/Time: Jul 08, 2024 03:20 PM Reporting Lab: [facility] [place] [facility] [address] [facility] [address] Performing Lab: [facility] [place] [facility] [address] [facility] [address] [place] [facility] [facility] LIVER FUNCTION ALKALINE PHOSPHATASE [ENZYMATIC ACTIVITY/VO LUME] IN SERUM OR PLASMA 69 U/L 40 - 150 07/14 Specimen Type: SERUM No comment entered. Ordering Provider: POLINA LI Report Released Date/Time: Jul 08, 2024 03:20 PM Reporting Lab: [facility] [place] [facility] [address] [facility] [address] Performing Lab: [facility] [place] [facility] [address] [facility] [address] [facility] [place] [facility] LIVER FUNCTION ASPARTATE AMINOTRANSF ERASE [ENZYMATIC ACTIVITY/VO LUME] IN SERUM OR PLASMA 20 U/L 5 - 34 07/14 Specimen Type: SERUM No comment entered. Ordering Provider: POLINA LI Report Released Date/Time: Jul 08, 2024 03:20 PM Reporting Lab: [facility] [address] [address] Performing Lab: [address] [address] [facility] LIVER FUNCTION ALANINE AMINOTRANSF ERASE [ENZYMATIC ACTIVITY/VO LUME] IN SERUM OR PLASMA 14 U/L 07/14 Specimen Type: SERUM No comment entered. Ordering Provider: POLINA LI Report Released Date/Time: Jul 08, 2024 03:20 PM Reporting Lab: [facility] [address] [address] Performing Lab: [phone] [place] [address] LIVER FUNCTION BILIRUBIN.T OTAL [MASS/VOLUM E] IN SERUM OR PLASMA 0.9 mg/dL 0.2 - 1.2 07/14 Specimen Type: SERUM No comment entered. Ordering Provider: POLINA LI Report Released Date/Time: Jul 08, 2024 03:20 PM Reporting Lab: [address] [address] Performing Lab: [address] [place], [place] [address] [facility] HEMOGLOBI N A1C PANEL HEMOGLOBIN A1C/HEMOGLO BIN.TOTAL IN BLOOD BY HPLC 6.8 4.0 - 5.6 07/14 H Specimen Type: BLOOD Comment: Values obtained from A1C measurement s can vary. For atypical A1C assays, a reported value of 7.0 could actually be between 6.72 and 7.28 if measured by a reference method. A reported value of 9.0 could actually be between 8.73 and 9.27. Ref: http://www. ngsp.org/[place] Pdata.asp Ordering Provider: POLINA LI Report Released Date/Time: Jul 08, 2024 03:20 PM Reporting Lab: [facility] [place] [facility] [address] [facility] [address] Performing Lab: [facility] [place] [facility] [address] [facility] [address] [facility] [facility] PT & INR (PROTIME) INR IN PLATELET POOR PLASMA BY COAGULATION ASSAY 2.0 07/14 Specimen Type: PLASMA No comment entered. Ordering Provider: POLINA LI Report Released Date/Time: Jul 08, 2024 03:20 PM Reporting Lab: [facility] [place] [facility] [address] [facility] [address] Performing Lab: [facility] [place] [facility] [address] [facility] [address] [facility] [place] [facility] PT & INR (PROTIME) PROTHROMBIN TIME (PT) 21.2 s 10.0 - 13.1 07/14 H Specimen Type: PLASMA No comment entered. Ordering Provider: POLINA LI Report Released Date/Time: Jul 08, 2024 03:20 PM Reporting Lab: [facility] [place] [facility] [address] [facility] [address] Performing Lab: [facility] [place] [facility] [address] [facility] [address] [facility] [place] [facility] MICROALBU MIN CREATININ E RATIO PANEL MICROALBUMI N/CREATININ E [MASS RATIO] IN URINE 17.6 mg/g 0 - 29.9 07/14 Specimen Type: URINE No comment entered. Ordering Provider: POLINA IL Report Released Date/Time: Jul 08, 2024 03:20 PM Reporting Lab: [facility] [place] [facility] [address] [facility] [address] Performing Lab: [facility] [place] [facility] [address] [facility] [address] [facility] [place] [facility] MICROALBU MIN CREATININ E RATIO PANEL MICROALBUMI N [MASS/VOLUM E] IN URINE 0.5 mg/dL 07/14 Specimen Type: URINE No comment entered. Ordering Provider: POLINA LI Report Released Date/Time: Jul 08, 2024 03:20 PM Reporting Lab: [facility] [place] [facility] [address] [facility] [address] Performing Lab: [facility] [place] [facility] [address] [facility] [address] [facility] [place] [facility] MICROALBU MIN CREATININ E RATIO PANEL CREATININE [MASS/VOLUM E] IN URINE 28.48 mg/dL 07/14 Specimen Type: URINE No comment entered. Ordering Provider: POLINA LI Report Released Date/Time: Jul 08, 2024 03:20 PM Reporting Lab: [facility] [address] [address] Performing Lab: [facility] [address] [address] [facility] [place] [facility] THYROID T4 FREE(FT4) THYROXINE (T4) FREE [MASS/VOLUM E] IN SERUM OR PLASMA 0.95 ng/dL 0.6 - 1.6 07/18 Specimen Type: SERUM No comment entered. Ordering Provider: POLINA LI Report Released Date/Time: Jul 10, 2023 02:46 PM Reporting Lab: [facility] [place] [facility] [address] [facility] [address] Performing Lab: [facility] [place] [facility] [address] [facility] [address] [facility] [place] [facility] CBC LEUKOCYTES [#/VOLUME] IN BLOOD BY AUTOMATED COUNT 8.97 10*3/u L 4.50 - 11.00 07/18 Specimen Type: BLOOD No comment entered. Ordering Provider: POLINA LI Report Released Date/Time: Jul 10, 2023 02:46 PM Reporting Lab: [facility] [place] [facility] [address] [facility] [address] Performing Lab: [facility] [place] [facility] [address] [facility] [address] [facility] [place] [facility] CBC ERYTHROCYTE S [#/VOLUME] IN BLOOD BY AUTOMATED COUNT 4.89 10*6/u L 4.23 - 5.66 07/18 Specimen Type: BLOOD No comment entered. Ordering Provider: POLINA LI Report Released Date/Time: Jul 10, 2023 02:46 PM Reporting Lab: [facility] [place] [facility] [address] [facility] [address] Performing Lab: [facility] [place] [facility] [address] [facility] [address] [facility] [place] [facility] CBC HEMOGLOBIN [MASS/VOLUM E] IN BLOOD 15.3 g/dL 12.8 - 17 07/18 Specimen Type: BLOOD No comment entered. Ordering Provider: POLINA LI Report Released Date/Time: Jul 10, 2023 02:46 PM Reporting Lab: [facility] [place] [address] [address] Performing Lab: [facility] [place] [address] [address] [facility] [place] [facility] CBC HEMATOCRIT [VOLUME FRACTION] OF BLOOD BY AUTOMATED COUNT 45.3 39.2 - 50.4 07/18 Specimen Type: BLOOD No comment entered. Ordering Provider: POLINA LI Report Released Date/Time: Jul 10, 2023 02:46 PM Reporting Lab: [facility] [place] [address] [address] Performing Lab: [facility] [place] [address] [address] [facility] [place] [facility] CBC MCV [ENTITIC VOLUME] BY AUTOMATED COUNT 92.6 fL 82 - 99 07/18 Specimen Type: BLOOD No comment entered. Ordering Provider: POLINA LI Report Released Date/Time: Jul 10, 2023 02:46 PM Reporting Lab: [facility] [place] [address] [address] Performing Lab: [facility] [place] [facility] [address] [facility] [address] [facility] [place] [facility] CBC MCHC [MASS/VOLUM E] BY AUTOMATED COUNT 33.8 g/dL 30.8 - 35.1 07/18 Specimen Type: BLOOD No comment entered. Ordering Provider: POLINA LI Report Released Date/Time: Jul 10, 2023 02:46 PM Reporting Lab: [facility] [place] [facility] [address] [facility] [address] Performing Lab: [facility] [place] [facility] [address] [facility] [address] [facility] [place] [facility] CBC PLATELETS [#/VOLUME] IN BLOOD BY AUTOMATED COUNT 209 10*3/u L 140 - 360 07/18 Specimen Type: BLOOD No comment entered. Ordering Provider: POLINA LI Report Released Date/Time: Jul 10, 2023 02:46 PM Reporting Lab: [facility] [place] [facility] [address] [facility] [address] Performing Lab: [facility] [place] [facility] [address] [facility] [address] [facility] [place] [facility] CBC ERYTHROCYTE DISTRIBUTIO N WIDTH [RATIO] BY AUTOMATED COUNT 15.0 12.0 - 16.0 07/18 Specimen Type: BLOOD No comment entered. Ordering Provider: POLINA LI Report Released Date/Time: Jul 10, 2023 02:46 PM Reporting Lab: [facility] [place] [facility] [address] [facility] [address] Performing Lab: [facility] [place] [facility] [address] [facility] [address] [facility] [place] [facility] CBC MCH [ENTITIC MASS] BY AUTOMATED COUNT 31.3 pg 26.2 - 32.6 07/18 Specimen Type: BLOOD No comment entered. Ordering Provider: POLINA LI Report Released Date/Time: Jul 10, 2023 02:46 PM Reporting Lab: [facility] [place] [facility] [address] [facility] [address] Performing Lab: [facility] [facility] [address] [facility] [address] [facility] [place] [facility] BASIC METABOLIC PANEL (fasting) UREA NITROGEN [MASS/VOLUM E] IN SERUM OR PLASMA 18 mg/dL 7 - 25 07/18 Specimen Type: SERUM No comment entered. Ordering Provider: POLINA LI Report Released Date/Time: Jul 10, 2023 02:46 PM Reporting Lab: [facility] [place] [facility] [address] [facility] [address] Performing Lab: [facility] [facility] [address] [facility] [address] [facility] [place] [facility] BASIC METABOLIC PANEL (fasting) GLUCOSE [MASS/VOLUM E] IN SERUM OR PLASMA 123 mg/dL 65 - 100 07/18 H Specimen Type: SERUM No comment entered. Ordering Provider: POLINA LI Report Released Date/Time: Jul 10, 2023 02:46 PM Reporting Lab: [facility] [place] [facility] [address] [facility] [address] Performing Lab: [facility] [place] [facility] [address] [facility] [address] [facility] [place] [facility] BASIC METABOLIC PANEL (fasting) SODIUM [MOLES/VOLU ME] IN SERUM OR PLASMA 137 mmol/L 135 - 145 07/18 Specimen Type: SERUM No comment entered. Ordering Provider: POLINA LI Report Released Date/Time: Jul 10, 2023 02:46 PM Reporting Lab: [facility] [facility] [address] [facility] [address] Performing Lab: [facility] [place] [facility] [address] [facility] [address] [facility] [facility] BASIC METABOLIC PANEL (fasting) POTASSIUM [MOLES/VOLU ME] IN SERUM OR PLASMA 4.8 mmol/L 3.5 - 5.0 07/18 Specimen Type: SERUM No comment entered. Ordering Provider: POLINA LI Report Released Date/Time: Jul 10, 2023 02:46 PM Reporting Lab: [facility] [place] [facility] [address] [facility] [address] Performing Lab: [facility] [place] [facility] [address] [facility] [address] [place] [facility] [place] [facility] BASIC METABOLIC PANEL (fasting) CHLORIDE [MOLES/VOLU ME] IN SERUM OR PLASMA 102 mmol/L 100 - 110 07/18 Specimen Type: SERUM No comment entered. Ordering Provider: POLINA LI Report Released Date/Time: Jul 10, 2023 02:46 PM Reporting Lab: [facility] [place] [address] [address] Performing Lab: [facility] [place] [address] [address] [facility] [place] [facility] BASIC METABOLIC PANEL (fasting) CARBON DIOXIDE, TOTAL [MOLES/VOLU ME] IN SERUM OR PLASMA 26 meq/L 20 - 30 07/18 Specimen Type: SERUM No comment entered. Ordering Provider: POLINA LI Report Released Date/Time: Jul 10, 2023 02:46 PM Reporting Lab: [facility] [place] [address] [address] Performing Lab: [facility] [place] [address] [address] [place] [facility] [facility] BASIC METABOLIC PANEL (fasting) CREATININE [MASS/VOLUM E] IN SERUM OR PLASMA 1.02 mg/dL 0.50 - 1.40 07/18 Specimen Type: SERUM No comment entered. Ordering Provider: POLINA LI Report Released Date/Time: Jul 10, 2023 02:46 PM Reporting Lab: [facility] [place] [facility] [address] [facility] [address] Performing Lab: [facility] [place] [address] [address] [facility] [place] [facility] BASIC METABOLIC PANEL (fasting) GLOMERULAR FILTRATION RATE/1.73 SQ M.PREDICTED [VOLUME RATE/AREA] IN SERUM, PLASMA OR BLOOD BY CREATININE- BASED FORMULA (CKD-EPI 2020) 74 mL/min 60 07/18 Specimen Type: SERUM No comment entered. Ordering Provider: POLINA LI Report Released Date/Time: Jul 10, 2023 02:46 PM Reporting Lab: [facility] [place] [facility] [address] [facility] [address] Performing Lab: [facility] [place] [facility] [address] [facility] [address] [place] [facility] [facility] Vital Signs Combined list of inpatient and outpatient Vital Signs from Department of Defense and Veterans Affairs, ranging from 12 months to all on record, depending upon the facility. Vital Sign Value Date Comments Source SYSTOLIC BLOOD PRESSURE 157 07/22/20 24 09:57:56 [facility] [place] [facility] DIASTOLIC BLOOD PRESSURE 81 024 09:57:56 [facility] [place] [facility] PULSE OXIMETRY 100 07/22/2024 09:57:56 [facility] [place] [facility] WEIGHT 263 07/22/2024 09:57:56 [facility] [place] [facility] BMI 37 kg/m2 07/22/2024 09:57:56 [facility] [place] [facility] PAIN 0 07/22/2024 09:57:56 [facility] [place] [facility] HEIGHT 71 07/22/2024 09:57:56 [facility] [place] [facility] TEMPERATURE 98.3 07/22/2024 09:57:56 [facility] [place] [facility] PULSE 88 07/22/2024 09:57:56 [facility] [place] [facility] RESPIRATION 20 07/22/2024 09:57:56 [place] [facility] [place] [facility] Encounters Combined list of: 1) Encounters from Department of Veterans Affairs facilities going backup to the last 18 months, not all VA inpatient encounters are included; 2) Encounters from the Department of Defense facilities going backup to 280 months. Location Location Details Encounter Type Encounter Number Reason For Visit Attending Provider ADM Date DC Date Status Disposition Source [facility] Encounter [id number] 06/06 [facility] En[facility] [id number] 06/06 [facility] En[facility] [id number] 06/17 [facility] Encounter [id number] 07/17 [facility] [place] OFFICE O/P EST LOW 20-29 MIN [id number] Diagnos is: ICD-10- CM I49.5 Sick sinus syndrom e Sinan LI 07/22 [facility] En[facility] [id number] 05/29 [facility] En[facility] [id number] 06/30 [facility] [place] OFF[facility] O/P EST HI 40 MIN [id number] Diagnos is: ICD-10- CM I49.5 Sick sinus syndrom e Sinan LI 07/22 [facility] En[facility] [id number] 08/31 [facility] Social History Combined list of available smoking, tobacco, and other social history from Department of Defense and Veterans Affairs facilities. Social History Type Response Date Comment Sour e Tobacco smoking status NHIS VA-TOBACCO NEVER USED 07/22/2023 [facility] [place] [facility] History of tobacco use VA-TOBACCO NEVER USED 07/19/2022 [facility] [place] [facility] History of tobacco use VA-TOBACCO NEVER USED 07/21/2021 [facility] [place] [facility] History of tobacco use VA-TOBACCO NEVER USED 07/12/2020 [facility] [place] [facility] History of tobacco use VA-TOBACCO NEVER USED 07/19/2019 [facility] [place] [facility] History of tobacco use VA-TOBACCO NEVER USED 02/14/2018 [facility] [place] [facility] History of tobacco use LIFETIME NON-TOBACCO USER 07/24/2017 [facility] [place] [facility] History of tobacco use LIFETIME NON-TOBACCO USER 07/25/2016 [facility] [place] [facility]
[2024-12-29 13:38] LABS: Alanine Aminotransferase 16 U/L (0-40); Albumin Level 4.1 g/dL (3.5-5.0); Alkaline Phosphatase 74 U/L (39-117); Anion Gap 12 (12-20); Aspartate Amino Transferase 33 U/L (5-37); Bilirubin Total 0.7 mg/dL (0.0-1.0); Blood Urea Nitrogen 19 mg/dL (9-16); Calcium 9.1 mg/dL (8.4-10.2); Carbon Dioxide 26 mmol/L (22-29); Chloride 105 mmol/L (96-108); Cholesterol 217 mg/dL (<200); Estimated Glomerular Filt Rate > 60; Glucose Random 124 mg/dL (60-115); HDL Cholesterol 26 mg/dL (>40); LDL Cholesterol Calculated 159 mg/dL (<100); Potassium 4.6 mmol/L (3.3-5.1); Sodium 138 mmol/L (135-145); Total Protein 7.2 g/dL (6.5-8.0); Triglycerides 161 mg/dL (<150)
[2024-12-29 16:15] LABS: Estimated Average Glucose 151 mg/dL; Hemoglobin A1C 200.9789 umol/L; Hemoglobin A1c % 6.9 % (<6.0); Total Hemoglobin (HGBA1C) 3868.0669 umol/L
== END 2024-12-29 08:13 | disposition home or self-care (01) ==
LOC: HO.MANLDS 08:12
PROVIDERS: Visit Provider Internal Medicine
DX: E11.9 Type 2 diabetes mellitus without complications (principal)
CPT/HCPCS: 36415; 80053; 80061; 83036

== ENCOUNTER 2025-05-05 07:42 | Outpatient (REF) | payer MEDICARE, OTHER, SELFPAY ==
--- OUTSIDE RECORDS SUMMARY | 2025-05-05 07:46 | XMS_ITS | Encounter Summary ---
Author Organization [facility] Address [address] [place] [address] Phone Care Team Providers Care Dowel Inserting Machine Operator Name Role Phone Natan Juarez DO Primary Care Provider [phone] Encounter Details Date Type Department Care Team (Late st Contact Info) Description 03/22/2023 Procedure Pass Echo [facility] [address] [address] [place] [address] Social History Tobacco Use Types Packs/Day Years Used Date Smoking Tobacco: Never Smokeless Tobacco: Never Alcohol Use Standard Drinks/Week Comments Yes 0 (1 standard drink = 0.6 oz pur e alcohol) occasional beer Education Answer Date Recorded Are you interested in more education? Not on maria del carmen e 12/14/2022 Are you concerned about learning? Not on file 12/14/2022 No 12/14/2022 No 12/14/2022 Digital Access Answer Date Recorded No 01/14/2023 No 01/14/2023 Reliable internet access at home? Not on file 01/14/2023 Device with a working camera? Not on file Sex and Gender Information Value Date Recorded Sex Assigned at Male 12/31/2017 9:48 AM EDT Legal Sex Male 10:11 PM EDT Gender Identity Male 12/31/2017 9:48 AM EDT Sexual Orientation Not on file documented as of this encounter Plan of Treatment Upcoming Encounters Date Type Department Care Team (Late st Contact Info) Description 05/11/2025 8:00 AM EDT Office Visit [facility] [address] [place] [address] Natan Juarez DO [address] [facility] [place] [address] 06/21/2025 7:30 AM EST Office Visit [facility] [address] [facility] 3rd Floor, [address] [place] [address] Zaida Mccall, DAMEON [address] [facility], [address] [place] [address] documented as of this encounter Visit Diagnoses Not on filedocumented in this encounter Care Teams Dowel Inserting Machine Operator Relationship Specialty Start Date End Date Natan Juarez DO josé PCP - General 06/06/17 documented as of this encounter Additional Source Comments The information contained in this document represents components of the legal health record. It is not the complete legal health record.[facility]
--- OUTSIDE RECORDS SUMMARY | 2025-05-05 07:46 | XMS_ITS | Encounter Summary ---
Author Organization [facility] Address [address] [place] [address] Phone Care Team Providers Care Mud Mixer Name Role Phone Natan Juarez DO Primary Care Provider [phone] Encounter Details Date Type Department Care Team (Late st Contact Info) Description 09/12/2023 Procedure Pass [facility], Ct Scan - [address] [address] Social History Tobacco Use Types Packs/Day Years [...] AM EDT Office Visit Anticoagulation Clinic [address] [place] [address] Natan Juarez DO [address] [facility] [place] [address] [place] [address] josé 06/21/2025 7:30 AM EST Office Visit [facility] [address] [facility] 3rd Floor, [address] [place] [address] Zaida Mccall, DAMEON [address] [facility], [address] [place] [address] documented as of this encounter Visit Diagnoses Not on filedocumented in this encounter Care Teams Mud Mixer Relationship Specialty Start Date End Date Natan Juarez DO josé PCP - General 06/06/17 documented as of this encounter Additional Source Comments The information contained in this document represents components of the legal health record. It is not the complete legal health record.[facility]
--- OUTSIDE RECORDS SUMMARY | 2025-05-05 07:47 | XMS_ITS | Encounter Summary ---
Author Organization [facility] Address [address] [place] [address] [place] [address] Phone Care Team Providers Care Mail Handler Assistant Name Role Phone Natan Juarez DO Primary Care Provider [phone] Encounter Details Date Type Department Care Team (Late Contact Info) Description 11/26/2022 Procedure Pass Non-Invasive Cardiology [address] [place] [address] Social History Tobacco Use Types Packs/Day Years Used Date Smoking Tobacco: Never Smokeless Tobacco: Never Alcohol Use Standard Drinks/Week Comments Yes 0 (1 standard drink = 0.6 oz pur e alcohol) occasional beer Sex and Gender Information Value Date Recorded Sex Assigned at Male 12/31/2017 9:48 AM EDT Legal Sex Male 10:11 PM EDT Gender Identity Male 12/31/2017 9:48 AM EDT Sexual Orientation Not on file documented as of this encounter Plan of Treatment Upcoming Encounters Date Type Department Care Team ([facility] Contact Info) Description 05/11/2025 8:00 AM EDT Office Visit Anticoagulation Clinic [address] [place] [address] Natan Juarez DO [address] [facility] [place] [address] [place] [address] josé 06/21/2025 7:30 AM EST Office Visit [facility] [address], [address] [place] [address] Zaida Mccall, DAMEON [address] [facility], [address] [place] [address] documented as of this encounter Visit Diagnoses Not on filedocumented in this encounter Care Teams Mail Handler Assistant Relationship Specialty Start Date End Date MadisonNatan santillanDO PCP - General 06/06/17 documented as of this encounter Additional Source Comments The information contained in this document represents components of the legal health record. It is not the complete legal health record.[facility]
--- OUTSIDE RECORDS SUMMARY | 2025-05-05 07:47 | XMS_ITS | Encounter Summary ---
Author Organization [facility] Address [address] [place] [address] Phone Care Team Providers Care General Lot Attendant Name Role Phone Natan Juarez DO Primary Care Provider [phone] Encounter Details Date Type Department Care Team (Late st Contact Info) Description 06/01/2024 Procedure Pass Non-Invasive Cardiology [address] [place] [address] Social History Tobacco Use Types Packs/Day Years [...] AM EDT Office Visit Anticoagulation Clinic [address] [place] [address] Natan Juarez DO [address] [facility] [place] [address] 06/21/2025 7:30 AM EST Office Visit [facility] [address] [facility] 3rd Floor, [address] [place] [address] Zaida Mccall, DAMEON [address] [facility], [address] [place] [address] documented as of this encounter Visit Diagnoses Not on filedocumented in this encounter Care Teams General Lot Attendant Relationship Specialty Start Date End Date Natan Juarez DO josé PCP - General 06/06/17 documented as of this encounter Additional Source Comments The information contained in this document represents components of the legal health record. It is not the complete legal health record.[facility]
--- OUTSIDE RECORDS SUMMARY | 2025-05-05 07:47 | XMS_ITS | Encounter Summary ---
Author Organization [facility] Address [address] [place] [address] [place] [address] Phone Care Team Providers Care Electronics Detail Draftsperson Name Role Phone Natan Juarez DO Primary Care Provider [phone] Encounter Details Date Type Department Care Team (Late Contact Info) Description 08/23/2021 Procedure Pass Non-Invasive Cardiology [address] [place] [address] Social History Tobacco Use Types Packs/Day Years [...] Upcoming Encounters Date Type Department Care Team ([facility] Contact Info) Description 05/11/2025 8:00 AM EDT Office Visit [facility]ticoagulation Clinic [address] [place] [address] Natan Juarez DO 179 [facility] [place] [address] [place] [address] josé 06/21/2025 7:30 AM EST Office Visit [facility] [address], [address] [place] [address] Zaida Mccall, DAMEON 22 [facility], [address] [place] [address] documented as of this encounter Visit Diagnoses Not on filedocumented in this encounter Care Teams Electronics Detail Draftsperson Relationship Specialty Start Date End Date MadisonNatan santillanDO PCP - General 06/06/17 documented as of this encounter Additional Source Comments The information contained in this document represents components of the legal health record. It is not the complete legal health record.[facility]
--- OUTSIDE RECORDS SUMMARY | 2025-05-05 07:47 | XMS_ITS | Encounter Summary ---
Author Organization [facility] Address [address] [place] [address] [place] [address] Phone Care Team Providers Care Calciner Operator Name Role Phone Natan Juarez DO Primary Care Provider [phone] Encounter Details Date Type Department Care Team (Late st Contact Info) Description 09/27/2020 Procedure Pass [facility] 30 [place] [address] Social History Tobacco Use Types Packs/Day Years [...] Encounters Date Type Department Care Team (Late Contact Info) Description 05/11/2025 8:00 AM EDT Office Visit Anticoagulation Clinic [address] [place] [address] Natan Juarez DO 179 [facility] [place] [address] [place] [address] josé 06/21/2025 7:30 AM EST Office Visit [facility] 22 [facility] 3rd Floor, [address] [place] [address] Zaida Mccall, DAMEON 22 [facility], [address] [place] [address] documented as of this encounter Visit Diagnoses Not on filedocumented in this encounter Care Teams Calciner Operator Relationship Specialty Start Date End Date Larry Natan DO Sariah PCP - General 06/06/17 documented as of this encounter Additional Source Comments The information contained in this document represents components of the legal health record. It is not the complete legal health record.[facility]
--- OUTSIDE RECORDS SUMMARY | 2025-05-05 07:47 | XMS_ITS | Encounter Summary ---
Author Organization [facility] Address [address] [place] [address] Phone Care Team Providers Care Telephone Order Clerk Room Service Name Role Phone Natan Juarez DO Primary Care Provider [phone] Encounter Details Date Type Department Care Team (Late st Contact Info) Description 06/01/2024 Procedure Pass Echo [facility] Anirudh [address] [place] [address] Social History Tobacco Use Types Packs/Day Years [...] AM EDT Office Visit Anticoagulation Clinic 30 [place] [address] Natan Juarez DO 179 [facility] [place] [address] 06/21/2025 7:30 AM EST Office Visit [facility] 22 [facility] 3rd Floor, [address] [place] [address] Zaida Mccall, DAMEON 22 [facility], [address] [place] [address] documented as of this encounter Visit Diagnoses Not on filedocumented in this encounter Care Teams Telephone Order Clerk Room Service Relationship Specialty Start Date End Date Natan Juarez DO josé PCP - General 06/06/17 documented as of this encounter Additional Source Comments The information contained in this document represents components of the legal health record. It is not the complete legal health record.[facility]
--- OUTSIDE RECORDS SUMMARY | 2025-05-05 07:47 | XMS_ITS | Encounter Summary ---
Author Organization [facility] Address [address] [place] [address] Phone Care Team Providers Care Sap Trainer Name Role Phone Natan Juarez DO Primary Care Provider [phone] Reason for Referral * Consultation (Routine) - Closed Specialty Diagnoses / Procedures Referred By Contac t Referred To Contact Diagnoses Aortic valve replaced Natan Juarez DO Phone: tel: fax: mailto:[email or web address] [facility] 30 [place] [address] Phone: tel: Referral ID Status Reason Start Date Expiration Date Visits Re quested Visits Authorized [id number] Closed 10/10/2020 10/10/2021 1 1 Encounter Details Date Type Department Care Team (Late st Contact Info) Description 10/10/2020 Transcribe Orders Virtual Department 30 [place] [address] Natan Juarez DO 179 [facility] [place] [address] josé Aortic valve replaced (Primary Dx) Social History Tobacco Use Types Packs/Day Years [...] AM EDT Office Visit [facility] Clinic [address] [place] [address] Natan Juarez DO 179 [facility] [place] [address] 06/21/2025 7:30 AM EST Office Visit [facility] 22 [facility] 3rd Floor, [address] [place] [address] Zaida Mccall, [facility] 22 [facility] [address] [place] [address] documented as of this encounter Procedures Procedure Name Priority Date/Time Associated Diagnosis Comments AMB REFERRAL TO [facility]TICO[facility]ULATION [facility] Routine 10/31/2020 3:25 PM EDT Aortic valve replaced documented in this encounter Results * Ambulatory referral to [facility] Anticoagulation Clinic (10/31/2020 3:25 PM EDT) Natan MONTES [facility] REFERRALS Final Result documented in this encounter Visit Diagnoses Diagnosis Aortic valve replaced- Primary Heart valve replaced by other means documented in this encounter Care Teams Sap Trainer Relationship Specialty Start Date End Date Natan Juarez DO PCP - General 06/06/17 documented as of this encounter Additional Source Comments The information contained in this document represents components of the legal health record. It is not the complete legal health record.[facility]
--- OUTSIDE RECORDS SUMMARY | 2025-05-05 07:47 | XMS_ITS | Encounter Summary ---
Author Organization [facility] Address [address] [place] [address] Phone Care Team Providers Care Controller Repairer And Tester Name Role Phone Natan Juarez DO Primary Care Provider [phone] Encounter Details Date Type Department Care Team (Late st Contact Info) Description 02/13/2021 Ancillary Orders Non-Invasive Cardiology [address] [place] [address] Julianna Pruitt MD 30 [place] [id number] [email or web address] Bradycardia Social History Tobacco Use Types Packs/Day Years [...] AM EDT Office Visit Anticoagulation Clinic [address] [place] [address] Natan Juarez DO 179 [place] [address] josé 06/21/2025 7:30 AM EST Office Visit [facility] 22 [facility] 3rd Floor, [address] [place] [address] Zaida Mccall DNP 22 [facility], [address] [place] [address] [email or web address] documented as of this encounter Results * DEVICE CHECK: PPM IN-HOME INTERROGATION (05/22/2021 2:08 PM EDT) Narrative Julianna Pruitt MD - 05/29/2021 2:40 PM EDT Reason for appointment: Remote pacemaker interrogation HPI: Routine 3 month remote pacemaker interrogation. No device related complaints. Indication for device: SSS. Examination: Device type: Pacemaker Portfolio Assistant: [employer]tr[employer] Mode: DDDR LRL/UPL: 60/130 bpm Mode switches: 0 High V rates: 1 1-sec NSVT Thresholds, impedances, and sensing stable Atrial pacin.1% Ventricular pacin% Battery: 12.3 yrs Additional comments: Device functioning appropriately. Normal device function. Patient to follow-up for continued monitoring every 3 months. Report prepared by Maylin Park RN Julianna Pruitt MD [facility] ORDER ZONIA Final Result documented in this encounter Visit Diagnoses Diagnosis Bradycardia Other specified cardiac dysrhythmias Bradycardia Other specified cardiac dysrhythmias documented in this encounter Care Teams Controller Repairer And Tester Relationship Specialty Start Date End Date Natan Juraez DO [email or web address] PCP - General 06/06/17 documented as of this encounter Additional Source Comments The information contained in this document represents components of the legal health record. It is not the complete legal health record.[facility]
--- OUTSIDE RECORDS SUMMARY | 2025-05-05 07:47 | XMS_ITS | Encounter Summary ---
Author Organization [facility] Address [address] [place] [address] [place] [address] Phone Care Team Providers Care Table Machine Operator Name Role Phone Natan Juarez DO Primary Care Provider [phone] Encounter Details Date Type Department Care Team (Late Contact Info) Description 08/22/2021 Procedure Pass Non-Invasive Cardiology [address] [place] [address] Social History Tobacco Use Types Packs/Day Years [...] Upcoming Encounters Date Type Department Care Team ([facility] Contact Info) Description 05/11/2025 8:00 AM EDT Office Visit Anticoagulation Clinic [address] [place] [address] Natan Juarez DO 179 [facility] [place] [address] [place] [address] josé 06/21/2025 7:30 AM EST Office Visit [facility] [address] [facility] [address]rd Floor, [address] [place] [address] Zaida Mccall, DAMEON 22 [facility], [address] [place] [address] documented as of this encounter Visit Diagnoses Not on filedocumented in this encounter Care Teams Table Machine Operator Relationship Specialty Start Date End Date MadisonNatan santillanDO PCP - General 06/06/17 documented as of this encounter Additional Source Comments The information contained in this document represents components of the legal health record. It is not the complete legal health record.[facility]
--- OUTSIDE RECORDS SUMMARY | 2025-05-05 07:47 | XMS_ITS | Encounter Summary ---
Author Organization [facility] Address [address] [place] [address] [place] [address] Phone Care Team Providers Care Multiple Games Dealer Name Role Phone Natan Juarez DO Primary Care Provider [phone] Encounter Details Date Type Department Care Team (Late st Contact Info) Description 05/12/2020 Procedure Pass [facility], [facility] 30 [place] [address] Social History Tobacco Use Types Packs/Day Years [...] AM EDT Office Visit Anticoagulation Clinic 30 [place] [address] Natan Juarez DO 179 [facility] [place] [address] josé 06/21/2025 7:30 AM EST Office Visit [facility] [address] [place] [address] 3rd Floor, [address] [place] [address] Zaida Mccall, DAMEON 22 [facility], [address] [place] [address] [place] [address] documented as of this encounter Visit Diagnoses Not on filedocumented in this encounter Care Teams Multiple Games Dealer Relationship Specialty Start Date End Date Madisonjacque Natan RolleDO josé PCP - General 06/06/17 documented as of this encounter Additional Source Comments The information contained in this document represents components of the legal health record. It is not the complete legal health record.[facility]
--- OUTSIDE RECORDS SUMMARY | 2025-05-05 07:47 | XMS_ITS | Encounter Summary ---
Author Organization [facility] Address [address] [place] [address] Phone Care Team Providers Care Floral Artist Name Role Phone Natan Juarez DO Primary Care Provider Reason for Referral * Consultation (Elective) - Canceled Specialty Diagnoses / Procedures Referred By Contac t Referred To Contact Diagnoses History of heart valve replacement with mechanical valve Natan Juarez DO Phone: tel: fax: mailto:[email or web address] [email or web address] [facility] 30 [place] [address] Phone: tel: Referral ID Status Reason Start Date Expiration Date V isits Requested Visits Authorized [id number] Canceled 10/10/2017 10/09/2018 1 1 Encounter Details Date Type Department Care Team ([facility] st Contact Info) Description 10/09/2017 Transcribe Orders Virtual Department 30 [place] [address] Natan Juarez DO 179 [facility] [place] [address] [email or web address] History of heart valve replacement with mechanical valve (Primary Dx) Social History Tobacco Use Types Packs/Day Years Used Date Smoking Tobacco: Never Assessed Sex and Gender Information Value Date Recorded Sex Assigned at Male 12/31/2017 9:48 AM EDT Legal Sex Male 10:11 PM EDT Gender Identity Male 12/31/2017 9:48 AM EDT Sexual Orientation Not on file documented as of this encounter Plan of Treatment Upcoming Encounters Date Type Department Care Team (Late st Contact Info) Description 05/11/2025 8:00 AM EDT Office Visit Anticoagulation Clinic [address] [place] [address] Natan Juarez DO 179 [facility] [place] [address] 06/21/2025 7:30 AM EST Office Visit [facility] 22 [facility] 3rd Floor, [address] [place] [address] Zaida Mccall, [facility] 22 [facility], [address] [place] [address] documented as of this encounter Procedures Procedure Name Priority Date/Time Associated Diagnosis Comments AMB REFERRAL TO [facility] Routine 10/29/2017 7:52 AM EDT History of heart valve replacement with mechanical valve documented in this encounter Results * Ambulatory referral to [facility] Anticoagulation Clinic (10/29/2017 7:52 AM EDT) us Natan MONTES [facility] REFERRALS Final Result documented in this encounter Visit Diagnoses Diagnosis History of heart valve replacement with mechanical valve- Primary documented in this encounter Care Teams Floral Artist Relationship Specialty Start Date End Date Natan Juarez DO PCP - General 06/06/17 documented as of this encounter Additional Source Comments The information contained in this document represents components of the legal health record. It is not the complete legal health record.[facility]
--- OUTSIDE RECORDS SUMMARY | 2025-05-05 07:47 | XMS_ITS | Encounter Summary ---
Author Organization [facility] Address [address] [place] [address] [place] [address] Phone Care Team Providers Care General Magistrate Name Role Phone Natan Juarez DO Primary Care Provider [phone] Encounter Details Date Type Department Care Team (Late Contact Info) Description 02/21/2022 Procedure Pass Non-Invasive Cardiology [address] [place] [address] Social History Tobacco Use Types Packs/Day Years [...] Upcoming Encounters Date Type Department Care Team ([facility] Contact Info) Description 05/11/2025 8:00 AM EDT Office Visit Anticoagulation Clinic [address] [place] [address] Natan Juarez DO 179 [facility] [place] [address] josé 06/21/2025 7:30 AM EST Office Visit [facility] [address], [address] [place] [address] Zaida Mccall, DAMEON 22 [facility], [address] [place] [address] documented as of this encounter Visit Diagnoses Not on filedocumented in this encounter Care Teams General Magistrate Relationship Specialty Start Date End Date MadisonNatan santillanDO PCP - General 06/06/17 documented as of this encounter Additional Source Comments The information contained in this document represents components of the legal health record. It is not the complete legal health record.[facility]
--- OUTSIDE RECORDS SUMMARY | 2025-05-05 07:47 | XMS_ITS | Encounter Summary ---
Author Organization [facility] Address [address] [place] [address] Phone Care Team Providers Care Spanish Interpreter/Translator Name Role Phone Natan Juarez DO Primary Care Provider [phone] Encounter Details Date Type Department Care Team (Late st Contact Info) Description 11/02/2020 Procedure Pass Non-Invasive Cardiology [address] [place] [address] Social History Tobacco Use Types Packs/Day Years [...] on file documented as of this encounter Functional Status * Calculated C-SSRS Risk Score (Lifetime/Recent) Answer Date of Assessment Author No Risk Indicated 11/03/2020 10:00 AM EDT Sammie Coleman RN * [place] Suicide Severity Rating Scale (Screener/Recent Self-Report) Question Answer Date of Assessment Author 1. Wish to be (Past 1 Month) No 11/03/2020 10:00 AM Sammie Rowley RN 2. Non-Specific Active Suici suzy Thoughts (Past 1 Month) No 11/03/2020 10:00 AM Joann Rowley RN 6. Suicidal Behavior (Lifetime) No 10:00 AM EDT Krodel, Sammie L, RN documented as of this encounter Plan of Treatment Upcoming Encounters Date Type Department Care Team (Late st Contact Info) Description 05/11/2025 8:00 AM EDT Office Visit Anticoagulation Clinic [address] [place] [address] Natan Juarez DO 179 [facility] [place] [address] 06/21/2025 7:30 AM EST Office Visit [facility] 22 [facility] 3rd Floor, [address] [place] [address] Zaida Mccall, DAMEON 22 [facility], [address] [place] [address] documented as of this encounter Visit Diagnoses Not on filedocumented in this encounter Care Teams Spanish Interpreter/Translator Relationship Specialty Start Date End Date Natan Juarez DO PCP - General 06/06/17 documented as of this encounter Additional Source Comments The information contained in this document represents components of the legal health record. It is not the complete legal health record.[facility]
--- OUTSIDE RECORDS SUMMARY | 2025-05-05 07:47 | XMS_ITS | Encounter Summary ---
Author Organization [facility] Address [address] [place] [address] Phone Care Team Providers Care Chemical Pathologist Name Role Phone Natan Juarez DO Primary Care Provider Encounter Details Date Type Department Care Team (Late st Contact Info) Description 11/02/2020 Procedure Pass [facility] 30 [place] [address] Social History Tobacco Use Types Packs/Day Years [...] 10:00 AM EDT Sammie Coleman RN * [facility] Suicide Severity Rating Scale (Screener/Recent Self-Report) Question [...] AM EDT Office Visit Anticoagulation Clinic [address] [place] [address] Natan Juarez DO 179 [facility] [place] [address] 06/21/2025 7:30 AM EST Office Visit [facility] 22 [facility] 3rd Floor, [address] [place] [address] Zaida Mccall, DAMEON 22 [facility], [address] [place] [address] documented as of this encounter Visit Diagnoses Not on filedocumented in this encounter Care Teams Chemical Pathologist Relationship Specialty Start Date End Date Natan Juarez DO josé PCP - General 06/06/17 documented as of this encounter Additional Source Comments The information contained in this document represents components of the legal health record. It is not the complete legal health record.[facility]
--- OUTSIDE RECORDS SUMMARY | 2025-05-05 07:47 | XMS_ITS | Encounter Summary ---
Author Organization [facility] Address [address] [place] [address] [place] [address] Phone Care Team Providers Care Bell Spinner Sousaphones Name Role Phone Natan Juarez DO Primary Care Provider [phone] Encounter Details Date Type Department Care Team (Late Contact Info) Description 08/27/2022 Procedure Pass Non-Invasive Cardiology [address] [place] [address] Social History Tobacco Use Types Packs/Day Years [...] Upcoming Encounters Date Type Department Care Team ([facility] Contact Info) Description 05/11/2025 8:00 AM EDT Office Visit Anticoagulation Clinic [address] [place] [address] Natan Juarez DO 179 [facility] [place] [address] josé 06/21/2025 7:30 AM EST Office Visit [facility] [address], [address] [place] [address] Zaida Mccall, DAMEON 22 [facility], [address] [place] [address] documented as of this encounter Visit Diagnoses Not on filedocumented in this encounter Care Teams Bell Spinner Sousaphones Relationship Specialty Start Date End Date MadisonNatan santillanDO PCP - General 06/06/17 documented as of this encounter Additional Source Comments The information contained in this document represents components of the legal health record. It is not the complete legal health record.[facility]
--- OUTSIDE RECORDS SUMMARY | 2025-05-05 07:47 | XMS_ITS | Encounter Summary ---
Author Organization [facility] Address [address] [facility] [address] [place] [address] Phone Care Team Providers Care Chair Spring Assembler Name Role Phone Natan Juarez DO Primary Care Provider [phone] Encounter Details Date Type Department Care Team (Late st Contact Info) Description 05/12/2020 Procedure Pass [facility], [facility] [address] [place] [address] Social History Tobacco Use Types Packs/Day Years [...] AM EDT Office Visit Anticoagulation Clinic [address] [place] [address] Natan Juarez DO 179 [facility] [place] [address] josé 06/21/2025 7:30 AM EST Office Visit [facility] [address] [place] [address] 3rd Floor, [address] [place] [address] Zaida Mccall, DAMEON 22 [facility], [address] [place] [address] documented as of this encounter Visit Diagnoses Not on filedocumented in this encounter Care Teams Chair Spring Assembler Relationship Specialty Start Date End Date Madisonjacque Natan DO Sariah josé PCP - General 06/06/17 documented as of this encounter Additional Source Comments The information contained in this document represents components of the legal health record. It is not the complete legal health record.[facility]
--- OUTSIDE RECORDS SUMMARY | 2025-05-05 07:47 | XMS_ITS | Encounter Summary ---
Author Organization [facility] Address [address] [facility] [address] [place] [address] Phone Care Team Providers Care Mud Jack Nozzleman Name Role Phone Natan uJarez DO Primary Care Provider [phone] Encounter Details Date Type Department Care Team (Late st Contact Info) Description 11/02/2020 Prep for Surgery [facility] [address] [facility] 3rd Floor, [address] [place] [address] Julianna Pruitt MD 30 [place] [address] [email or web address] Social History Tobacco Use Types Packs/Day Years [...] Author No Risk Indicated 11/03/2020 10:00 AM Sammie Rowley RN * [place] Suicide Severity Rating Scale (Screener/Recent Self-Report) Question Answer Date of Assessment Author 1. Wish to be (Past 1 Month) No 11/03/2020 10:00 AM Sammie Rowley RN 2. Non-Specific Active Suici suzy Thoughts (Past 1 Month) No 11/03/2020 10:00 AM EDT Joann Coleman, LAKHWINDER 6. Suicidal Behavior (Lifetime) No 10:00 AM EDT Sammie Coleman RN documented as of this encounter Plan of Treatment Upcoming Encounters Date Type Department Care Team (Late st Contact Info) Description 05/11/2025 8:00 AM EDT Office Visit [facility] [address] [place] [address] Natan Juarez DO [address] [facility] [place] [address] [place] [address] josé 06/21/2025 7:30 AM EST Office Visit [facility] [address] [facility] 3rd Floor, [address] [place] [address] Zaida Mccall, [facility] [address] [facility], [address] [place] [address] documented as of this encounter Visit Diagnoses Not on filedocumented in this encounter Care Teams Mud Jack Nozzleman Relationship Specialty Start Date End Date Natan Juarez DO josé PCP - General 06/06/17 documented as of this encounter Additional Source Comments The information contained in this document represents components of the legal health record. It is not the complete legal health record.[facility]
--- OUTSIDE RECORDS SUMMARY | 2025-05-05 07:47 | XMS_ITS | Encounter Summary ---
Author Organization [facility] Address [address] [facility] [address] [facility] [address] [place] [address] Phone Care Team Providers Care Private Branch Exchange Repairer Name Role Phone Natan Juarez DO Primary Care Provider [phone] Encounter Details Date Type Department Care Team (Late st Contact Info) Description 02/13/2021 Ancillary [facility] [address] [facility] 3rd Floor, [address] [place], [place] [id number] Julianna Pruitt MD 30 [place] [id number] [email or web address] Social History Tobacco Use Types Packs/Day Years [...] AM EDT Office Visit Anticoagulation Clinic [address] [place] [address] Natan Juarez DO [address] [facility] [place] [address] josé 06/21/2025 7:30 AM EST Office Visit [facility] [address] [facility] 3rd Floor, [address] [place] [address] Zaida Mccall, DAMEON [address] [facility], [address] [place] [address] documented as of this encounter Visit Diagnoses Not on filedocumented in this encounter Care Teams Private Branch Exchange Repairer Relationship Specialty Start Date End Date Natan Juarez DO josé PCP - General 06/06/17 documented as of this encounter Additional Source Comments The information contained in this document represents components of the legal health record. It is not the complete legal health record.[facility]
--- OUTSIDE RECORDS SUMMARY | 2025-05-05 07:47 | XMS_ITS | Encounter Summary ---
Author Organization [facility] Address [address] [place] [address] [place] [address] Phone Care Team Providers Care Trimming Assembler Name Role Phone Natan Juarez DO Primary Care Provider [phone] Encounter Details Date Type Department Care Team (Late st Contact Info) Description 03/29/2020 Procedure Pass [facility] Admitting Dept Virtual Department 30 [place] [address] Social History Tobacco Use Types Packs/Day Years [...] AM EDT Office Visit Anticoagulation Clinic [address] [place] [address] Natan Juarez DO [address] [facility] [place] [address] [place] [address] josé 06/21/2025 7:30 AM EST Office Visit [facility] [address] [place] [address] 3rd Floor, [address] [place] [address] Zaida Mccall, DAMEON [address] [facility], [address] [place] [address] documented as of this encounter Visit Diagnoses Not on filedocumented in this encounter Care Teams Trimming Assembler Relationship Specialty Start Date End Date Madisonjacque Natan RolleDO josé PCP - General 06/06/17 documented as of this encounter Additional Source Comments The information contained in this document represents components of the legal health record. It is not the complete legal health record.[facility]
--- OUTSIDE RECORDS SUMMARY | 2025-05-05 07:47 | XMS_ITS | Encounter Summary ---
Author Organization [facility] Address [address] [place] [address] [place] [address] Phone Care Team Providers Care Walnut Dehydrator Operator Name Role Phone Natan Juarez DO Primary Care Provider [phone] Encounter Details Date Type Department Care Team (Late st Contact Info) Description 05/12/2020 Procedure Pass [facility] 30 [place] [address] Social History Tobacco Use Types Packs/Day Years [...] AM EDT Office Visit Anticoagulation Clinic 30 [place] [address] Natan Juarez DO [address] [facility] [place] [address] josé 06/21/2025 7:30 AM EST Office Visit [facility] [address] [place] [address] 3rd Floor, [address] [place] [address] Zaida Mccall, DAMEON 22 [facility], [address] [place] [address] [place] [address] documented as of this encounter Visit Diagnoses Not on filedocumented in this encounter Care Teams Walnut Dehydrator Operator Relationship Specialty Start Date End Date Madisonjacque Natan RolleDO josé PCP - General 06/06/17 documented as of this encounter Additional Source Comments The information contained in this document represents components of the legal health record. It is not the complete legal health record.[facility]
--- OUTSIDE RECORDS SUMMARY | 2025-05-05 07:47 | XMS_ITS | Encounter Summary ---
Author Organization [facility] Address [address] [place] [address] Phone Care Team Providers Care Sql Report Analyst Name Role Phone Natan Juarez DO Primary Care Provider [phone] Encounter Details Date Type Department Care Team (Late st Contact Info) Description 05/04/2025 Documentation [facility] [address] [place] [address] Jovana Olmos RN 30 [place] [address] [email or web address] Social History Tobacco Use Types Packs/Day Years [...] on file documented as of this encounter Progress Notes * Jovana Olmos RN - 05/04/2025 11:37 AM EDT Tracker updated. 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 It is not the complete legal health record.[facility]
--- OUTSIDE RECORDS SUMMARY | 2025-05-05 07:47 | XMS_ITS | Encounter Summary ---
Author Organization [facility] Address [address] [place] [address] Phone Care Team Providers Care Value Stream Coach Name Role Phone Natan Juarez DO Primary Care Provider [phone] Encounter Details Date Type Department Care Team (Late st Contact Info) Description 09/20/2023 Procedure Pass Non-Invasive Cardiology [address] [place] [address] Social History Tobacco Use Types Packs/Day Years [...] AM EDT Office Visit Anticoagulation Clinic [address] [place] [address] Natan Juarez DO [address] [facility] [place] [address] 06/21/2025 7:30 AM EST Office Visit [facility] [address] [facility] 3rd Floor, [address] [place] [address] Zaida Mccall, DAMEON [address] [facility], [address] [place] [address] documented as of this encounter Visit Diagnoses Not on filedocumented in this encounter Care Teams Value Stream Coach Relationship Specialty Start Date End Date Natan Juarez DO josé PCP - General 06/06/17 documented as of this encounter Additional Source Comments The information contained in this document represents components of the legal health record. It is not the complete legal health record.[facility]
--- OUTSIDE RECORDS SUMMARY | 2025-05-05 07:47 | XMS_ITS | Encounter Summary ---
Author Organization [facility] Address [address] [place] [address] [place] [address] Phone Care Team Providers Care Fur Remodeler Name Role Phone Natan Juarez DO Primary Care Provider [phone] Encounter Details Date Type Department Care Team (Late Contact Info) Description 11/28/2021 Procedure Pass Non-Invasive Cardiology [address] [place] [address] Social History Tobacco Use Types Packs/Day Years [...] Upcoming Encounters Date Type Department Care Team ([facility] Contact Info) Description 05/11/2025 8:00 AM EDT Office Visit Anticoagulation Clinic [address] [place] [address] Natan Juarez DO [address] [facility] [place] [address] josé 06/21/2025 7:30 AM EST Office Visit [facility] [address] Floor, [address] [place] [address] Zaida Mccall, DAMEON [address] [facility], [address] [place] [address] documented as of this encounter Visit Diagnoses Not on filedocumented in this encounter Care Teams Fur Remodeler Relationship Specialty Start Date End Date MadisonNatan santillanDO PCP - General 06/06/17 documented as of this encounter Additional Source Comments The information contained in this document represents components of the legal health record. It is not the complete legal health record.[facility]
--- OUTSIDE RECORDS SUMMARY | 2025-05-05 07:47 | XMS_ITS | Encounter Summary ---
Author Organization [facility] Address [address] [place] [address] Phone Care Team Providers Care Communications Equipment Operator Name Role Phone Natan Juarez DO Primary Care Provider [phone] Encounter Details Date Type Department Care Team (Late st Contact Info) Description 03/06/2023 Procedure Pass Non-Invasive Cardiology [address] [place] [address] Social History Tobacco Use Types Packs/Day Years [...] AM EDT Office Visit Anticoagulation Clinic [address] [place] [address] Natan Juarez DO [address] [place] [address] 06/21/2025 7:30 AM EST Office Visit [facility] [address] [facility] 3rd Floor, [address] [place] [address] Zaida Mccall, DAMEON [address] [facility], [address] [place] [address] documented as of this encounter Visit Diagnoses Not on filedocumented in this encounter Care Teams Communications Equipment Operator Relationship Specialty Start Date End Date Natan Juarez DO josé PCP - General 06/06/17 documented as of this encounter Additional Source Comments The information contained in this document represents components of the legal health record. It is not the complete legal health record.[facility]
--- OUTSIDE RECORDS SUMMARY | 2025-05-05 07:47 | XMS_ITS | Encounter Summary ---
Author Organization [facility] Address [address] [facility] [address] [place] [address] Phone Care Team Providers Care Knitter Operator Name Role Phone Natan Juarez DO Primary Care Provider [phone] Encounter Details Date Type Department Care Team (Late st Contact Info) Description 02/24/2025 Ancillary Orders [facility], X-Ray - [facility] 30 [place] [address] Natan Juarez DO [address] [facility] [place] [address] [email or web address] Pain (Primary Dx); Injury; Foot ulcer, left, with unspecified severity Social History Tobacco Use Types Packs/Day Years [...] AM EDT Office Visit Anticoagulation Clinic [address] [place] [address] MadisonjacqueNatan, DO [address] [facility] [place] [address] [email or web address] 06/21/2025 7:30 AM EST Office Visit [facility] [address] [facility] 3rd Floor, [address] [place] [address] Zaida Mccall, DAMEON 22 [facility], [address] [place] [address] documented as of this encounter Results * XR RIBS 3 OR MORE VIEWS WITH PA CHEST (RIGHT) (02/24/2025 3:23 PM EDT) Anatomical Region Laterality Modality Chest Computed Radiogr aphy 02/25/2025 4:36 PM EDT Impressions 02/25/2025 4:41 PM EDT No acute displaced rib fracture is identified. Narrative 02/25/2025 4:41 PM EDT XR RIBS 3 OR MORE VIEWS WITH PA CHEST (RIGHT) Referring clinician's provided indication for this examination in [facility]: Pain COMPARISON: Chest radiographs 11/03/2020 FINDINGS: No acute displaced rib fracture is identified. PA evaluation of the chest is without evidence of focal consolidation, pleural effusion, pulmonary edema, or pneumothorax. The cardiomediastinal silhouette is enlarged, not significantly changed. There is a left chest wall cardiac device. There are median sternotomy wires. Procedure Note Tata Del Angel MD - 02/25/2025 XR RIBS 3 OR MORE VIEWS WITH PA CHEST (RIGHT) Referring clinician's provided indication for this examination in [facility]:Pain COMPARISON: Chest radiographs 11/03/2020 FINDINGS: No acute displaced rib fracture is identified. PA evaluation of the chest is without evidence of focal consolidation,pleural effusion, pulmonary edema, or pneumothorax. The cardiomediastinalsilhouette is enlarged, not significantly changed. There is a left chestwall cardiac device. There are median sternotomy wires. IMPRESSION: No acute displaced rib fracture is identified. 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 There is no evidence of acute fracture, subluxation, or dislocation. There is a small well-corticated osseous body along the lateral fifth metatarsal base, likely representing old injury or accessory ossicle. There is mild degenerative change of the first metatarsophalangeal joint. There is scattered degenerative change of the interphalangeal joints. There is a moderate plantar calcaneal enthesophyte. There is an os peroneum. There is lateral soft tissue swelling, nonspecific. 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 There is no evidence of acutefracture, subluxation, or dislocation. There is a small well-corticatedosseous body along the lateral fifth metatarsal base, likely representingold injury or accessory ossicle. There is mild degenerative change of thefirst metatarsophalangeal joint. There is scattered degenerative change ofthe interphalangeal joints. There is a moderate plantar calcanealenthesophyte. There is an os peroneum. There is lateral soft tissueswelling, nonspecific. Natan Juarez DO IMG XR LOWER EXTREMITY Final Res ult documented in this encounter Visit Diagnoses Diagnosis Pain- Primary Generalized pain Injury Injury, other and unspecified, unspecified site Foot ulcer, left, with unspecified severity Foot ulcer, left, with unspecified severity Pain Generalized pain documented in this encounter Care Teams Knitter Operator Relationship Specialty Start Date End Date Natan Juarez DO josé [email or web address] PCP - General 06/06/17 documented as of this encounter Additional Source Comments The information contained in this document represents components of the legal health record. It is not the complete legal health record.[facility]
--- OUTSIDE RECORDS SUMMARY | 2025-05-05 07:47 | XMS_ITS | Encounter Summary ---
Author Organization [facility] Address [address] [facility] [address] [place] [address] Phone Care Team Providers Care Internet Manager Name Role Phone Natan Juarez DO Primary Care Provider [phone] Reason for Referral * MRI/CAT Scan - Closed Specialty Diagnoses / Procedures Referred By Contac t Referred To Contact Radiology Diagnoses Ataxia Procedures CT Head Natan Juarez DO Phone: tel: fax: [email or web address] Referral ID Status Reason Start Date Expiration Date Visits Re quested Visits Authorized [id number] Closed 09/12/2023 1 1 Encounter Details Date Type Department Care Team ([facility] st Contact Info) Description 09/12/2023 Transcribe Orders Virtual Department 30 [place] [address] Natan Juarez DO [address] [facility] [place] [address] [email or web address] Ataxia (Primary Dx) Social History Tobacco Use Types [...] AM EDT Office Visit Anticoagulation Clinic [address] [place] [address] Natan Juarez, [address] [facility] [place] [address] 06/21/2025 7:30 AM EST Office Visit [facility] [address] [facility] 3rd Floor, [address] [place] [address] Zaida Mccall, DAMEON 22 [facility], [address] [place] [address] documented as of this encounter Results * CT HEAD WITHOUT CONTRAST (09/26/2023 5:09 PM EST) Anatomical Region Laterality Modality Head Computed Tomogra phy 09/26/2023 5:54 PM EST Impressions 09/26/2023 8:17 PM EST No acute intracranial findings. 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 Mild supratentorial white matter disease, likely reflecting chronic small vessel disease. Narrative 09/26/2023 8:[address] HEAD WITHOUT CONTRAST Referring clinician's provided indication for this examination in Epic: Outside Radiology Order; ATAXIA TECHNIQUE: Multidetector-row CT of the head was performed without intravenous contrast using tailored dose modulation techniques. Images were reconstructed in the axial, coronal, and sagittal planes. COMPARISON: Head CT 05/12/2020 FINDINGS: Brain Parenchyma: There is similar mild scattered hypodensity in the periventricular and deep white matter which is nonspecific and can be seen in the setting of chronic small vessel disease. No midline shift, mass effect, parenchymal hemorrhage, or evidence of acute territorial infarct. 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 Mild generalized parenchymal volume loss, not unexpected for age. Ventricular System and Extra-Axial Spaces: Cavum septum pellucidum, anatomic variant No extra-axial fluid collections. Basal cisterns are patent. No hydrocephalus. Osseous and Extracranial Structures: Small left sphenoid sinus mucus retention cyst. No orbital abnormality. Left lens replacement. Procedure Note Matthew Ordonez MD - 09/26/2023 CT HEAD WITHOUT CONTRAST Referring clinician's provided indication for this examination in [facility]:Outside Radiology Order; ATAXIA TECHNIQUE: Multidetector-row CT of the head was performed withoutintravenous contrast using tailored dose modulation techniques. Imageswere reconstructed in the axial, coronal, and sagittal planes. COMPARISON: Head CT 05/12/2020 FINDINGS: Brain Parenchyma: There is similar mild scattered hypodensity in theperiventricular and deep white matter which is nonspecific and can be seenin the setting of chronic small vessel disease. 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 Mild generalized parenchymal volumeloss, not unexpected for age. Ventricular System and Extra-Axial Spaces: Cavum septum pellucidum,anatomic variant No extra-axial fluid collections. Basal cisterns arepatent. No hydrocephalus. Osseous and Extracranial Structures: Small left sphenoid sinus mucusretention cyst. No orbital abnormality. Left lens replacement. IMPRESSION: No acute intracranial findings. 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 Mild supratentorial white matter disease, likely reflecting chronic smallvessel disease. us Natan Juarez DO IMG CT HEAD/NECK Final Result documented in this encounter Visit Diagnoses Diagnosis Ataxia- Primary Lack of coordination Ataxia Lack of coordination documented in this encounter Care Teams Internet Manager Relationship Specialty Start Date End Date Natan Juarez DO josé [email or web address] PCP - General 06/06/17 documented as of this encounter Additional Source Comments The information contained in this document represents components of the legal health record. It is not the complete legal health record.[facility]
--- OUTSIDE RECORDS SUMMARY | 2025-05-05 07:47 | XMS_ITS | Encounter Summary ---
Author Organization [facility] Address [address] [place] [address] Phone Care Team Providers Care Collector Name Role Phone Natan Juarez DO Primary Care Provider [phone] Reason for Referral * Consultation (Elective) - Closed Specialty Diagnoses / Procedures Referred By Contac t Referred To Contact Diagnoses History of heart valve replacement with mechanical valve Natan Juarez DO Phone: tel: fax: mailto:[email or web address] [address] [place] [address] Phone: tel: Referral ID Status Reason Start Date Expiration Date Visits Re quested Visits Authorized [id number] Closed 07/19/2021 07/19/2022 1 1 Encounter Details Date Type Department Care Team (Late st Contact Info) Description 07/19/2021 Transcribe Orders Virtual Department [address] [place] [address] Natan Juarez DO [address] [facility] [place] [address] josé History of heart valve replacement with mechanical [...] AM EDT Office Visit [facility] [address] [address] Natan Juarez DO [address] [facility] [place] [address] [place] [address] [email or web address] 06/21/2025 7:30 AM EST Office Visit [facility] [address] [facility] 3rd Floor, [address] [place] [address] Zaida Mccall, [facility] [address] [facility] [address] [place] [address] Scheduled Referrals Name Type Priority Associated Diagnoses Order Schedule Ambulatory referral to [facility] Antico[facility] Clinic Outpatient Referral Routine History of heart valve replacement with mechanical valve Ordered: 07/19/2021 documented as of this encounter Visit Diagnoses Diagnosis History of heart valve replacement with mechanical valve- Primary documented in this encounter Care Teams Collector Relationship Specialty Start Date End Date Natan Juarez DO josé PCP - General 06/06/17 documented as of this encounter Additional Source Comments The information contained in this document represents components of the legal health record. It is not the complete legal health record.[facility]
--- OUTSIDE RECORDS SUMMARY | 2025-05-05 07:47 | XMS_ITS | Encounter Summary ---
Author Organization [facility] Address [address] [place] [address] Phone Care Team Providers Care Traffic Division Commanding Officer Name Role Phone Natan Juarez DO Primary Care Provider [phone] Reason for Referral * Consultation (Routine) - Closed Specialty Diagnoses / Procedures Referred By Contac t Referred To Contact Diagnoses Aortic valve replaced Natan Juarez DO Phone: tel: fax: mailto:[email or web address] [facility] [address] [place] [address] Phone: tel: Referral ID Status Reason Start Date Expiration Date Visits Re quested Visits Authorized [id number] Closed 08/14/2018 08/14/2019 1 1 Encounter Details Date Type Department Care Team (Late st Contact Info) Description 08/14/2018 Transcribe Orders Virtual Department [address] [place] [address] Natan Juarez DO [address] [facility] [place] [address] [email or web address] Aortic valve replaced (Primary Dx) Social History Tobacco Use Types Packs/Day Years Used Date Smoking Tobacco: Never Smokeless Tobacco: Never Alcohol Use Standard Drinks/Week Comments Yes 0 (1 standard drink = 0.6 oz pur e alcohol) Sex and Gender Information Value Date Recorded Sex Assigned at Male 12/31/2017 9:48 AM EDT Legal Sex Male 10:11 PM EDT Gender Identity Male 12/31/2017 9:48 AM EDT Sexual Orientation Not on file documented as of this encounter Plan of Treatment Upcoming Encounters Date Type Department Care Team (Late st Contact Info) Description 05/11/2025 8:00 AM EDT Office Visit [facility] Clinic [address] [place] [address] Natan Juarez DO [address] [facility] [address] [place] [address] 06/21/2025 7:30 AM EST Office Visit [facility] [address] [facility] 3rd Floor, [address] [place] [address] Zaida Mccall, [facility] [address] [facility], [address] [place] [address] olga Scheduled Referrals Name Type Priority Associated Diagnoses Order Schedule Ambulatory referral to [facility] Anticoagulation Clinic Outpatient Referral Routine Aortic valve replaced Ordered: 08/14/2018 documented as of this encounter Visit Diagnoses Diagnosis Aortic valve replaced- Primary Heart valve replaced by other means documented in this encounter Care Teams Traffic Division Commanding Officer Relationship Specialty Start Date End Date Natan Juarez DO josé PCP - General 06/06/17 documented as of this encounter Additional Source Comments The information contained in this document represents components of the legal health record. It is not the complete legal health record.[facility]
--- OUTSIDE RECORDS SUMMARY | 2025-05-05 07:47 | XMS_ITS | Encounter Summary ---
Author Organization [facility] Address [address] [place] [address] [place] [address] Phone Care Team Providers Care Internal Audit Director Name Role Phone Natan Juarez DO Primary Care Provider [phone] Encounter Details Date Type Department Care Team (Late st Contact Info) Description 03/28/2020 Procedure Pass [facility]oscopy Admitting Dept Virtual Department [address] [place] [address] Social History Tobacco Use Types Packs/Day Years [...] AM EDT Office Visit [facility] Clinic [address] [place] [address] Natan Juarez DO [address] [facility] [place] [address] josé 06/21/2025 7:30 AM EST Office Visit [facility] [address] [place] [address] 3rd Floor, [address] [place] [address] Zaida Mccall, DAMEON [address] [facility], [address] [place] [address] documented as of this encounter Visit Diagnoses Not on filedocumented in this encounter Care Teams Internal Audit Director Relationship Specialty Start Date End Date Madisonjacque Natan RolleDO josé PCP - General 06/06/17 documented as of this encounter Additional Source Comments The information contained in this document represents components of the legal health record. It is not the complete legal health record.[facility]
--- OUTSIDE RECORDS SUMMARY | 2025-05-05 07:47 | XMS_ITS | Encounter Summary ---
Author Organization [facility] Address [address] [place] [address] Phone Care Team Providers Care Canceling Machine Operator Name Role Phone Natan Juarez DO Primary Care Provider [phone] Reason for Referral * Consultation (Routine) - Closed Specialty Diagnoses / Procedures Referred By Contac t Referred To Contact Diagnoses Mechanical heart valve present Natan Juarez DO Phone: tel: fax: mailto:[email or web address] [facility] [address] [place] [address] Phone: tel: Referral ID Status Reason Start Date Expiration Date Visits Re quested Visits Authorized [id number] Closed 11/01/2017 11/01/2018 99 99 Encounter Details Date Type Department Care Team (Late st Contact Info) Description 11/01/2017 Transcribe Orders Virtual Department [address] [place] [address] Natan Juarez DO [address] [facility] [place] [address] [email or web address] Mechanical heart valve present (Primary Dx) Social History Tobacco Use Types [...] AM EDT Office Visit [facility] [address] [place] [address] Natan Juarez DO [address] [facility] [place] [address] 06/21/2025 7:30 AM EST Office Visit [facility] [address] [facility] 3rd Floor, [address] [place] [address] Zaida Mccall, DAMEON [address] [facility], [address] [place] [address] Scheduled Referrals Name Type Priority Associated Diagnoses Order Schedule Ambulatory referral to [facility] Anticoagulation Clinic Outpatient Referral Routine Mechanical heart valve present Ordered: 11/01/2017 documented as of this encounter Visit Diagnoses Diagnosis Mechanical heart valve present- Primary documented in this encounter Care Teams Canceling Machine Operator Relationship Specialty Start Date End Date Natan Juarez DO [email or web address] PCP - General 06/06/17 documented as of this encounter Additional Source Comments The information contained in this document represents components of the legal health record. It is not the complete legal health record.[facility]
--- OUTSIDE RECORDS SUMMARY | 2025-05-05 07:47 | XMS_ITS | Encounter Summary ---
Author Organization [facility] Address [address] [place] [address] [place] [phone] Phone Care Team Providers Care Multiple Pressure Riveter Operator Name Role Phone Natan Juarez DO Primary Care Provider Encounter Details Date Type Department Care Team (Late Contact Info) Description 12/31/2017 Procedure Pass [facility], Ct Scan - [address] [address] Social History Tobacco Use Types Packs/Day Years Used Date Smoking Tobacco: Never Alcohol Use Standard Drinks/Week Comments [...] AM EDT Office Visit Anticoagulation Clinic [address] [place] [address] Natan Juarez DO [address] [facility] [place] [address] josé 06/21/2025 7:30 AM EST Office Visit [facility] [address] [place] [address] 3rd Floor, [address] [place] [address] Zaida Mccall, DAMEON 22 [facility], [address] [place] [address] documented as of this encounter Visit Diagnoses Not on filedocumented in this encounter Care Teams Multiple Pressure Riveter Operator Relationship Specialty Start Date End Date MadisonNatan santillanDO josé PCP - General 06/06/17 documented as of this encounter Additional Source Comments The information contained in this document represents components of the legal health record. It is not the complete legal health record.[facility]
--- OUTSIDE RECORDS SUMMARY | 2025-05-05 07:47 | XMS_ITS | Clinical Summary ---
Author Organization [facility] Address [address] [place] [id number] Phone Care Team Providers Care Drier Tender Naphthalene Name Role Phone Natan Juarez DO Primary Care Provider [phone] Allergies Active Allergy Reactions Criticality Noted Date Comments Atorvastatin Myalgia 03/24/2020 Cholestyramine (With Sugar) 12/16/2024 Loratadine Other (See Comments) 10/15/2017 Dry mouth, severe dry skin, and skin break down Fenofibrate Rash Low 12/16/2024 Cephalexin Rash Low 10/15/2017 Niacin 12/16/2024 Pljxwom-Qip-Vmt Reductase Inhibitors Myalgia 10/15/2017 Medications aspirin 81 MG EC tablet Take 81 mg by mouth daily. Active omega 0-bdj-fps-fish oil (FISH OIL) 1,000 mg (120 mg-180 mg) Cap Take 1 capsule by mouth daily. Active netarsudiL-lat anoprost (ROCKLATAN) 0.02-0.005 % Drop Apply 1 drop to eye nightly at bedtime. Left eye Active lisinopril (PRINIVIL,ZEST RIL) 10 MG tablet Take 2 tablets (20 mg total) by mouth daily. 0 Active dorzolamide HCl (DORZOLAMIDE OPHT) Apply 1 drop in left eye to eye 2 (two) times a day. Active warfarin (COUMADIN) 4 MG tablet Take 1 tablet (4 mg total) by mouth daily. RESUME 11/05/20 1 Active Additional Information Patient taking differently:4 mg Oral Daily, Maintenance plan: 4mg daily, Reported on 04/13/2025 triamcinolone acetonide 0.025 % cream triamcinolone acetonide 0.025 % topical cream APPLY TO THE AFFECTED AREAS ON FACE AND EARS ONCE DAILY FOR 2 WEEKS NEEDED Active brimonidine (ALPHAGAN P) 0.15 % ophthalmic solution INSTILL ONE DROP IN THE LEFT EYE TWO TIMES A DAY 3 Active docusate sodium (COLACE) 100 MG capsule Take 100 mg by mouth. 5 Active polyethylene glycol 3350 (MIRALAX ORAL) Take 17 g by mouth as needed. 5 Active terbinafine HCL (LAMISIL) 250 mg tablet Take 250 mg by mouth daily. Daily x 90 days. 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 Sick sinus syndrome 11/21/2020 Assessment & Plan (11/21/2020 2:28 PM EDT): Programming device evaluation with iterative adjustment of the implantable device to test the function of the device and select optimal permanent program values with analysis review and report. He reports a dramatic improvement in his overall energy level since his pacemaker was placed 3 weeks ago. He has been set up for remote monitoring. His device interrogation in the office today shows a normally functioning device. His incision is healing well. We will set him up for a device interrogation in office at the same time as his appointment with Dr. Cole in February. S/P placement of cardiac pacemaker 11/02/2020 Assessment & Plan (12/16/2024 8:37 AM EDT): Pacemaker was interrogated here in the office today with normal device function. There was approximately 9 years of battery life remaining. See Diandra's report for full details. We will continue to monitor his device remotely every 3 months and then see him back here in the office on a yearly basis to do an in person interrogation. 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 Patient has no device related complaints. Due for an office device check 11/2024, otherwise continue remote monitoring. 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 patient will return to the office tomorrow for device interrogation with Diandra as unable to be completed today. Patient has no device related complaints. Continue in office follow-up every 6 months. Assessment & Plan (11/03/2020 10:12 AM EDT): Due to second-degree AV block. Patient was noted to have heart rates in the 30s therefore was recommended that the patient undergo pacemaker placement. Underwent pacemaker placement 11/02. -repeat chest x-ray without acute abbnormality -s/p pacemaker interrogation -Cardiology has seen this am -will hold Coumadin for 72 hours per cardiology -No lifting left upper extremity above head. -Should use sling when up and out of bed. Glaucoma 11/02/2020 Assessment & Plan (11/02/2020 3:21 PM EDT): Continue eyedrops of Rocklatan and Dorzolamide to the left eye Obstructive sleep apnea 09/23/2020 Assessment & Plan (11/02/2020 2:57 PM EDT): cpap Mechanical heart valve present 05/13/2020 Assessment & Plan (12/16/2024 8:36 AM EDT): His mechanical valve is well-seated and there are no perivalvular leaks. We will repeat an echocardiogram again in another year or so. He is on Coumadin for anticoagulation. Assessment & Plan (06/01/2024 4:49 PM EDT): Hx of severe aortic stenosis status post mechanical aortic valve replacement in 2003 at [facility]. Prior echoes have shown a well-functioning mechanical aortic valve. Echo will be due in the spring which has been ordered today and we will see the patient back in follow-up thereafter with his java technical architect. Continue warfarin. Assessment & Plan (11/28/2023 4:59 PM EDT): past medical history of severe aortic stenosis status post mechanical aortic valve replacement in 2003 at [facility]. Continue serial echoes. Continue warfarin. Assessment & Plan (11/21/2020 2:26 PM EDT): He had a mechanical mitral valve replacement in 2003. His most recent echocardiogram done several months ago shows a normally functioning prosthetic valve. Continue Coumadin with a goal INR of 2.5-3.5. Assessment & Plan (11/03/2020 8:57 AM EDT): AVR with mechanical valve INR 2.5-3.5. Coumadin has been on hold in preparation for pacemaker placement. Per cards- hold Coumadin for 72 hours post pacemaker placement. Assessment & Plan (06/01/2020 3:50 PM EDT): Recent echocardiogram showed a normally functioning mechanical aortic valve. Continue anticoagulation. Assessment & Plan (05/13/2020 11:47 AM EDT): - check INR, was 2.6 yesterday - cont anticoagulation coumadin - valve appeared to be functioning on recent echo Type 2 diabetes mellitus wit hout complication, without long-term current use of insulin 05/12/2020 Assessment & Plan (11/02/2020 2:56 PM EDT): Diet controlled humalog ss with meals POCs with meals Assessment & Plan (05/13/2020 11:45 AM EDT): Diet controlled Cont current insulin hba1c 7.4 Hypertensive disorder 02/18/2018 Assessment & Plan (12/16/2024 8:36 AM EDT): Blood pressure is 140/70. He is on lisinopril 20 mg daily. He is encouraged follow heart healthy diet including low-sodium and to continue exercising. Assessment & Plan (06/01/2024 4:47 PM EDT): Borderline in the office today 132/72 on lisinopril 20 mg daily. Labs up-to-date. I asked patient to check at home over the next few months for more data. Can titrate up Mike at follow-up if above goal 130/80. Assessment & Plan (11/28/2023 4:57 PM EDT): Well-controlled on current regimen which we will continue. Assessment & Plan (11/21/2020 2:27 PM EDT): He was initially hypertensive in the office. He tells me that when he is sitting and resting his blood pressure is usually normal. When I rechecked his blood pressure, it did improve to 146/80. He tells me that his blood pressures at home are normal and regularly checked by his who is a nurse. He tells me that he takes his blood pressure medications at night because when he was taking them during the day he was getting too lightheaded. Assessment & Plan (11/02/2020 2:54 PM EDT): Continue lisinopril 20mg daily Assessment & Plan (07/22/2020 2:23 PM EST): Blood pressure today 150/80. His medications include lisinopril 20mg daily, asa 81mg daily. Today. Hydrochlorothiazide 25 mg daily. He will continue checking pressures at home and record them. If he develops lightheadedness or syncopal episodes and or low blood pressures less than 100 systolically he will call office to be seen sooner. Assessment & Plan (06/10/2020 1:39 PM EDT): He has stopped wearing his CPAP over the last year after an injury that he had from a tractor causing significant pain to his whole body. He notes that since stopping his CPAP, his blood pressure has been significantly higher and his heart rate especially at nighttime is been lower. I have asked him to wear his CPAP consistently for the next 6 weeks and then follow-up to see if his blood pressure is better controlled before we make any changes. His BP was at goal last week and I suspect it very significantly Assessment & Plan (06/01/2020 3:51 PM EDT): Pressure in the office today is adequately controlled on his current medications. Assessment & Plan (05/13/2020 11:44 AM EDT): - lisinopril held to allow permissive htn, at this point, blood pressures significantly elevated, will resume with hold parameters - potassium improved today (4.7) Hyperlipidemia 02/18/2018 Assessment & Plan (12/16/2024 8:37 AM EDT): Controlled with diet. Assessment & Plan (11/02/2020 2:54 PM EDT): Diet controlled Assessment & Plan (05/13/2020 11:39 AM EDT): - not able to take statins d/t myalgia - LDL elevated 163 - takes fish oil Resolved Problems Problem Noted Date Diagnosed Date Resolved Date Dizziness 05/12/2020 05/13/2020 Assessment & Plan (05/13/2020 11:42 AM EDT): - wkup included very recent echo (not repeated), CT head, MRI brain (pending results), carotid ultrasound pending, orthostatic vs (blood pressure elevated and stable), cardiology consult re: bradycardia and 2nd degree heart block - may need 30 day monitor, defer to cardiology - tele neuro consult requested Encounters Date Type Department Care Team Description 05/04/2025 Documentation [facility] [address] [place] [address] Jovana Olmos, LAKHWINDER 04/13/2025 8:00 AM EDT Office Visit Anticoagulation Clinic [address] [place] [address] Natan Juarez, Mechanical heart valve present (Primary Dx); terminal supervisor (current) use of anticoagulants 03/25/2025 Orders Only [facility] [address], [address] [place] [address] Provider, MD Zoe 03/09/2025 8:00 AM EDT Office Visit Anticoagulation Clinic [address] [place] [address] Natan Juarez, Mechanical heart valve present (Primary Dx); terminal supervisor (current) use of anticoagulants 03/04/2025 Orders Only [facility] [address], [address] [place] [address] Provider, MD Zoe 02/24/2025 2:56 PM EDT - 02/24/2025 11:59 PM EDT Hospital Encounter [address] [address] Natan Juarez, Discharge Disposition: Home or Self Care 02/24/2025 2:55 PM EDT Hospital Encounter [address] [address] Natan Juarez, Discharge Disposition: Home or Self Care 02/24/2025 Ancillary Orders [address] [address] Natan Juarez DO Pain (Primary Dx); Injury; Foot ulcer, left, with unspecified severity 02/02/2025 8:00 AM EDT Office Visit Anticoagulation Clinic [address] [place] [address] Natan Juarez DO Mechanical heart valve present (Primary Dx); terminal supervisor (current) use of anticoagulants from Last 3 Months Immunizations Immunization Administration Dates Next Due COVID-19 (Pre-06/10) Moderna Vaccine, mRNA, PF 10/01/2020,09/03/2020 INFLUENZA, SPLIT VIRUS, TRIV ALENT W/ PRESERVATIVE IM 07/24/2017 Influenza Quadrivalent Prese rvative Free IM 06/11/2019 Influenza Quadrivalent w/ Pr eservative IM 06/07/2020 Influenza Trivalent Adjuvant ed Preservative free IM 07/21/2018 Influenza, Unspecified Formulation 05/28,07/09/2016,07/12/2010,05/20 Pneumococcal conjugate PCV13 05/12/2020( Deferred: Contraindication),06/11/2019, 8 Pneumococcal polysaccharide PPSV23 06/11/2019, Tdap 07/24/2017 Family History Medical History Relation Comments Cancer Father Relation Status Comments Father Social History Tobacco Use Types Packs/Day Years Used Date Smoking Tobacco: Never Smokeless Tobacco: Never Tobacco Cessation:Counseling Given: Not Answered Alcohol Use Standard Drinks/Week Comments Yes 0 [...] AM EDT Sexual Orientation Not on file Last Filed Vital Signs Vital Sign Reading Time Taken Comments Blood Pressure 140/70 12/16/2024 8:08 AM EDT Pulse 86 12/16/2024 8:08 AM EDT Temperature 36 C (96.8 F) 11/03/2020 8:08 AM EDT Respiratory Rate 18 11/03/2020 8:08 AM EDT Oxygen Saturation 97% 12/16/2024 8:08 AM EDT Inhaled Oxygen Concentration - - Weight 120.7 kg (266 lb) 12/16/2024 8:08 AM EDT Height 180 cm (5' 10.87 ) 12/16/2024 8:08 AM EDT Body Mass Index 37.24 12/16/2024 8:08 AM EDT Plan of Treatment Upcoming Encounters Date Type Department Care Team (Late st Contact Info) Description 05/11/2025 8:00 AM EDT Office Visit Anticoagulation Clinic [address] [place] [address] Natan Juarez DO [address] [place] [address] josé 06/21/2025 7:30 AM EST Office Visit [facility] [address] [place] [address] [address]rd Floor, [address] [place] [address] Zaida Mccall, DAMEON [address] [facility], [address] [place] [address] [email or web address] Health Maintenance Due Date Last Done Comments DEPRESSION SCREENING 1952 ZOSTER VACCINES (1 of 2) 1992 RSV VACCINE (1 - 1-dose 75+ series) 2017 DIABETIC EYE EXAM 05/12/2020 HEMOGLOBIN A1C 11/10/2020 05/13/2020 LIPID PANEL 05/13/2021 05/13/2020, 11/20/2010 CREATININE LEVEL 11/03/2021 11/03/2020, , 05/13/2020, Additional history exists POTASSIUM LEVEL 11/03/2021 11/03/2020, 10/17, 05/13/2020, Additional history exists INFLUENZA VACCINE (#1) 2025 , 06/06/2023, 06/09/2022, Additional history exists COVID-19 VACCINE ( season) 2025 10/01/2020, 09/03/2020 BLOOD PRESSURE 06/17/2025 12/16/2024 Adult Td,Tdap Booster 11/02/2031 11/01/2021, 017 PNEUMOCOCCAL VACCINES (50+ years) Completed 06/11/2019, 06/11/2019, 07/21/2018, Additional history exists HEPATITIS A VACCINES Aged Out No long er eligible based on patient's age to complete this topic HIB VACCINES Aged Out No longer eligi ble based on patient's age to complete this topic MENINGOCOCCAL VACCINES (ACWY) Aged Out No longer eligible based on patient's age to complete this topic MENINGOCOCCAL VACCINES (B) Aged Out N o longer eligible based on patient's age to complete this topic Medical Devices Implanted Type Area Hr Receptionist Device Identifier Shelf Expiration Date Model / Serial / Lot Envelope Tyrx Absorbable Antibacterial Med Sterile - [id number] Implanted:Qty: 1 on 11/02/2020 by Julianna Pruitt MD at [facility] Collagen Left: Chest [employer] [id number] 06/11/2021 [id number] 2 / / [id number] Lead Pacing Capsurefix 6.2fr 52cm Novus Mri Silicone Steroid Eluting Transvenous Atrium Rv Active Screw Is1 Bi - [id number] Implanted:Qty: 1 on 11/02/2020 by Julianna Pruitt MD at [facility] Lead [employer] [id number] 09/08/2022 5076-52 / [id number] / Lead Pacing Capsurefix 6.2fr 58cm Novus Mri Silicone Steroid Eluting Transvenous Atrium Rv Active Screw Is 1 Bi - [id number] Implanted:Qty: 1 on 11/02/2020 by Julianna Pruitt MD at [facility] Lead Right Ventricle [employer] [id number] 09/05/2022 5076-58 / [id number] / Device Pacemaker Martha Xt Dr Mri - [id number] Implanted:Qty: 1 on 11/02/2020 by Julianna Pruitt MD at [facility] Pacemaker Left: Chest [employer] 03/15/2022 [id number] / / Aortic Heart Valve Procedures Procedure Name Priority Date/Time Associated Diagnosis Comments POCT INR Routine 04/13/2025 8:05 AM EDT OUTSIDE EP STUDY Routine 03/22/2025 1:16 PM EDT POCT INR Routine 03/09/2025 8:02 AM EDT XR RIBS 3 OR MORE VIEWS WITH PA CHEST (RIGHT) Routine 02/24/2025 3:23 PM EDT Pain XR FOOT 3 OR MORE VIEWS (LEFT) Routine 02/24/2025 3:22 PM EDT Foot ulcer, left, with unspecified severity POCT INR Routine 02/02/2025 8:02 AM EDT COMPREHENSIVE METABOLIC PANEL Routine 11/03/2020 4:51 AM EDT HEMOGLOBIN A1C Routine 05/13/2020 5:15 AM EDT LIPID PANEL Routine 05/13/2020 5:15 AM EDT from Last 3 Months or Most Recently Relevant to Health Maintenance Results * (ABNORMAL) Poct INR (04/13/2025 8:05 AM EDT) Only the most recent of3 resultswithin the time period is included. INR 1.9(H) 0.86 - 1.17 [facility] Comment:Therapeutic Range 2. 0-3.5 04/13/2025 8:05 AM EDT 04/13/2025 8:08 AM EDT us Natan A Bigda DO POINT OF CARE TEST ORDERABLES Fi nal Result [address] [address] * Outside EP Study Report Only (03/22/2025 1:16 PM EDT) Historical Provider MD LOUIS SEVILLA Final Result * XR RIBS 3 OR MORE VIEWS WITH PA CHEST (RIGHT) (02/24/2025 3:23 PM EDT) Anatomical Region Laterality Modality Chest Computed Radiogr aphy 02/25/2025 4:36 PM EDT Impressions 02/25/2025 4:41 PM EDT No acute displaced rib fracture is identified. Narrative 02/25/2025 4:41 PM EDT XR RIBS 3 OR MORE VIEWS WITH PA CHEST (RIGHT) Referring clinician's provided indication for this examination in Epic: Pain COMPARISON: Chest radiographs 11/03/2020 FINDINGS: No [...] clinician's provided indication for this examination in [facility]:Pain COMPARISON: Chest radiographs 11/03/2020 FINDINGS: No acute [...] clinician's provided indication for this examination in [facility]: diabetic foot ulcer COMPARISON: None Procedure Note [...] peroneum. There is lateral soft tissueswelling, nonspecific. us Natan A Bigda DO IMG XR LOWER EXTREMITY Final Res ult * (ABNORMAL) Comprehensive metabolic panel (11/03/2020 4:51 AM EDT) SODIUM 137 133 - 146 mmol/L [facility] POTASSIUM 4.7 3.3 - 5.1 mmol/L [facility] CHLORIDE 101 96 - 108 mmol/L [facility] CO2 28 21 - 35 mmol/L [facility] BUN 14 6 - 19 mg/dL [facility] CREATININE 0.90 0.5 - 1.5 mg/dL [facility] GLUCOSE 132(H) 70 - 99 mg/dL [facility] ALBUMIN 4.1 3.9 - 4.8 g/dL [facility] TOTAL PROTEIN 7.0 6.5 - 8.0 g/dL [facility] CALCIUM 9.3 8.4 - 10.3 mg/dL [facility] ALKALINE PHOSPHATASE 66 39 - 117 U/L [facility] TOTAL BILIRUBIN 0.5 0.0 - 1.2 mg/dL [facility] AST 16 0 - 37 U/L [facility] ALT 9 0 - 40 U/L [facility] GLOBULIN 2.9 1 - 4.8 g/dL [facility] EGFR 82 >59 mL/min/1.7 3m2 [facility] Comment:Estimated glomerular filtration rate calculated using the CKD-EPI equation. ANION GAP 13 10 - 20 mmol/L [facility] Blood 11/03/2020 4:51 AM EDT 11/03/2020 5:29 AM EDT Vinod Park PA-C LAB BLOOD ORDERABLES Final Re sult Performing Organization Address City/[facility]/ZIP Co de Phone Number [address] [address] * (ABNORMAL) Hemoglobin A1c (05/13/2020 5:15 AM EDT) HEMOGLOBIN A1C 7.4(H) 4.3 - 5.8 % [facility] Blood 05/13/2020 5:15 AM EDT 05/13/2020 6:37 AM EDT Vinod Park PA-C LAB BLOOD ORDERABLES Final Re sult Performing Organization Address [facility] Co de Phone Number [address] [address] * (ABNORMAL) Lipid panel (05/13/2020 5:15 AM EDT) HDL 26 mg/dL [facility] Comment: Interpretation <40 mg/dL: Low HDL cholesterol (major risk factor for CHD) Greater than or equal to 60 mg/dL: High HDL cholesterol ( negative risk factor for CHD) HDL - cholesterol is affected by a number of factors, e.g. smoking, excerise, hormones, sex and age. CHOLESTEROL 246(H) 0 - 240 mg/dL [facility] TRIGLYCERIDES 285(H) 30 - 160 mg/dL [facility] LDL 163(H) 50 - 129 mg/dL [facility] Comment: LDL levels in terms of risk for coronary heart disease: <100 mg/dL: Optimal 100-129 mg/dL: Near or above optimal 130-159 mg/dL: Borderline high 160-189 mg/dL: High >190 mg/dL: Very High CARDIAC RISK RATIO 9.5(H) 3.4 - 5.0 C [facility] Blood 05/13/2020 5:15 AM EDT 05/13/2020 6:37 AM EDT us Vinod Park PA-C LAB BLOOD ORDERABLES Final Re sult [address] [address] from Last 3 Months or Most Recently Relevant to Health Maintenance Insurance MEDICARE PART A & B MEDICARE SUPPLEMENT MEDICARE PART A & B Member Subscriber Plan / Payer (Ef fective 2007-Present) Name:Obinna Franco Member ID:[id number] Relation to Subscriber:Self Name:Obinna Franco Subscriber ID:[id number] Payer ID:[id number] Group ID:Not on file Type:Medicare Address: [employer] [address] MEDICARE SUPPLEMENT MEDICARE PART A & B [facility] MEDICARE SUPPLEMENT MEDICARE PART A & B [facility] MEDICARE SUPPLEMENT MEDICARE PART A & B Member Subscriber Plan / Payer ( fective 2007-Present) Name:Obinna Franco Member ID:[id number] Relation to Subscriber:Self Name:Obinna Franco Subscriber ID:[id number] Payer ID:[id number] Group ID:Not on file Type:Medicare Address: [employer] [address] [place] [address] [place] [address] MEDICARE SUPPLEMENT MEDICARE PART A & B Member Subscriber Plan / Payer (Ef fective 2007-Present) Name:Obinna Franco Member ID:[id number] Relation to Subscriber:Self Name:Obinna Franco Subscriber ID:[id number] Payer ID:[id number] Group ID:Not on file Type:Medicare Address: [employer] [address] MEDICARE SUPPLEMENT MEDICARE PART A & B MEDICARE SUPPLEMENT MEDICARE PART A & B Member Subscriber Plan / Payer (Ef fective 2007-Present) Name:Obinna Franco Member ID:[id number] Relation to Subscriber:Self Name:Obinna Franco Subscriber ID:[id number] Payer ID:[id number] Group ID:Not on file Type:Medicare Address: [employer] [address] MEDICARE SUPPLEMENT MEDICARE PART A & B MEDICARE SUPPLEMENT Advance Directives For more information, please contact: [phone] (9AM - 5PM [facility], Saturday-Saturday) Documents on File Type Date Recorded Patient Lithographic Stripper Expl anation Healthcare Proxy 11/04/2020 2:44 PM * Full Code (Latest Code Status on File) Date Activated Date Inactivated Comments 11/02/2020 3:04 PM Question Answer Comments Code Status Confirmed With: Patient * Full Code Date Activated Date Inactivated Comments 11/02/2020 3:00 PM 11/02/2020 3:04 PM Question Answer Comments Code Status Confirmed With: Patient * Full Code Date Activated Date Inactivated Comments 05/12/2020 7:14 PM 11/02/2020 3:00 PM Question Answer Comments Code Status Confirmed With: Patient Healthcare Agents on File Name Relationship Healthcare Agent Relationshi p Communication Rema Franco Spouse Alternate Health care Agent (Proxy form on file) Care Teams Drier Tender Naphthalene Relationship Specialty Start Date End Date Natan Juarez DO josé [email or web address] PCP - General 06/06/17 Additional Source Comments The information contained in this document represents components of the legal health record. It is not the complete legal health record.[facility]
--- OUTSIDE RECORDS SUMMARY | 2025-05-05 07:47 | XMS_ITS | Encounter Summary ---
Author Organization [facility] Address [address] [place] [address] [place] [address] Phone Care Team Providers Care Army Officer Name Role Phone Natan Juarez DO Primary Care Provider [phone] Encounter Details Date Type Department Care Team (Late Contact Info) Description 02/13/2021 Procedure Pass Non-Invasive Cardiology [address] [place] [address] Social History Tobacco Use Types Packs/Day Years [...] Upcoming Encounters Date Type Department Care Team ([facility] Contact Info) Description 05/11/2025 8:00 AM EDT Office Visit Anticoagulation Clinic [address] [place] [address] Natan Juarez DO [address] [facility] [place] [address] [place] [address] josé 06/21/2025 7:30 AM EST Office Visit [facility] [address], [address] [place] [address] Zaida Mccall, DAMEON [address] [facility], [address] [place] [address] documented as of this encounter Visit Diagnoses Not on filedocumented in this encounter Care Teams Army Officer Relationship Specialty Start Date End Date MadisonNatan santillanDO PCP - General 06/06/17 documented as of this encounter Additional Source Comments The information contained in this document represents components of the legal health record. It is not the complete legal health record.[facility]
--- OUTSIDE RECORDS SUMMARY | 2025-05-05 07:47 | XMS_ITS | Encounter Summary ---
Author Organization [facility] Address [address] [place] [address] [place] [phone] Phone Care Team Providers Care Rest Room Attendant Name Role Phone Natan Juarez DO Primary Care Provider [phone] Encounter Details Date Type Department Care Team (Late Contact Info) Description 05/28/2022 Procedure Pass Non-Invasive Cardiology [address] [place] [address] Social History Tobacco Use Types Packs/Day Years [...] Encounters Date Type Department Care Team ([facility] Contact Info) Description 05/11/2025 8:00 AM EDT Office Visit [facility] [address] [place] [address] Natan Juarez DO [address] [facility] [place] [address] [place] [address] josé 06/21/2025 7:30 AM EST Office Visit [facility] [address], [address] [place] [address] Zaida Mccall, DAMEON [address] [facility] [address], [address] [place] [address] documented as of this encounter Visit Diagnoses Not on filedocumented in this encounter Care Teams Rest Room Attendant Relationship Specialty Start Date End Date MadisonNatan santillanDO PCP - General 06/06/17 documented as of this encounter Additional Source Comments The information contained in this document represents components of the legal health record. It is not the complete legal health record.[facility]
[2025-05-05 13:47] LABS: Hemoglobin A1C 197.7049 umol/L; Total Hemoglobin (HGBA1C) 3691.3175 umol/L
[2025-05-05 13:56] LABS: Blood Urea Nitrogen 21 mg/dL (9-16); Estimated Glomerular Filt Rate > 60
== END 2025-05-05 07:43 | disposition home or self-care (01) ==
LOC: HO.MANLDS 07:42
PROVIDERS: Visit Provider Internal Medicine
DX: R79.89 Other specified abnormal findings of blood chemistry (principal); R94.4 Abnormal results of kidney function studies
CPT/HCPCS: 36415; 82565; 83036; 84520